=== PATIENT | female | born 1970 | race Caucasian/White ===

== ENCOUNTER 2018-10-26 17:02 | Inpatient (IN) ==
[2018-10-26] MEDS ORDERED: Isovue-370 500 ML BOTTLE IVP ONE (18:22)
[2018-10-26] MEDS ORDERED: *HR* FentaNYL (PF) 100 MCG/2 ML VIAL IVP ONE ×2 (18:29→19:53)
[2018-10-26] MEDS ORDERED: Ondansetron 4 MG/2 ML VIAL IVP ONE (18:31)
--- NOTE | 2018-10-26 18:40 | Emergency Department Note ---
Disposition Clinical Impression: Ischemic toe Disposition: Still a Patient Referrals: Margarita Carey CNP [Primary Care Provider] - Forms: ED Satisfaction Letter Time of Disposition: 21:46 General Adult HPI - General Chief complaint: ED Extremity Problem,Nontraumatic Stated complaint: Right foot pain/big toe black Time Seen by Provider: 10/26/18 17:13 Source: patient Limitations: no limitations Nursing Notes Reviewed: Yes Vital Signs Reviewed: Yes - History of Present Illness HPI Narrative: Patient is a 47-year-old female presenting to emergency Department for right great toe pain. Patient states that 2 weeks ago her right great toe became purple and painful. She is been seen multiple times for this including a vascular surgeon. Patient presents because despite pain medications provided home she is unable to control her pain. She has been taking oxycodone and Toradol. Patient states it is getting progressively worse, with pain in her ankle, swelling. Patient denies fever, chills, chest pain, shortness of breath, abdominal pain, nausea, vomiting Pain Scale: 10 - Related Data Home Medications Medication Instructions Recorded Confirmed Insulin ASPART [NovoLOG] 0 unit SQ Q6HR 10/13/18 10/13/18 Losartan [Cozaar] 25 mg PO DAILY 10/13/18 10/13/18 Non-Formulary Medication 1 unit SQ DAILY 10/13/18 10/13/18 Previous Rx's Medication Instructions Recorded Oxycodone HCl/Acetaminophen 1 each PO Q4H PRN 3 Days #12 tablet 10/19/18 [Percocet 5-325 mg Tablet] Allergies Allergy/AdvReac Type Severity Reaction Status Date / Time No Known Allergies Allergy Verified 10/13/18 17:53 All systems ED: reviewed and negative except as stated. Review of Systems: As Per HPI Constitutional: Denies: fever, chills Eyes: Denies: eye pain, eye discharge ENT ED: Denies: ear pain, throat pain Cardiovascular: Denies: chest pain, palpitations, dyspnea on exertion Respiratory: Denies: cough, dyspnea, wheezes Gastrointestinal: Denies: abdominal pain, nausea Genitourinary: Denies: urgency, dysuria Musculoskeletal: Denies: back pain, neck pain Integumentary: Denies: rash, abrasion Neurological: Denies: headache, weakness Psychiatric: Denies: anxiety, depression Endocrine: Denies: fatigue, heat or cold intolerance Hematological/Lymphatic: Denies: easy bleeding, easy bruising Allergic/Immunologic: Denies: facial swelling, urticaria Past Medical History - Past Medical History Attestation: Yes The following information was validated with the patient. 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 Absent: respiratory distress - Cardiovascular Cardiovascular exam: Present: regular rate, normal rhythm - Abdominal Exam Abdominal exam: Present: soft, Non-Tender. Absent: tenderness, distention - Expanded Lower Extremity Exam Foot/toe exam: Present: other (Right great toe is purple with crepitus, pain with active and passive movement.) Neurovascular/Tendon exam: Absent: normal capillary refill - Back Exam Back exam: Present: normal inspection - Neurological Exam Neurological exam: Present: alert, oriented X3 - Psychiatric Psychiatric exam: Present: normal affect, normal mood - Skin Skin exam: Present: warm, dry Course Vital Signs Temperature 98.5 F 10/26/18 17:27 Pulse Rate 121 10/26/18 17:27 Respiratory Rate 18 10/26/18 17:27 Blood Pressure 208/88 10/26/18 17:27 O2 Sat by Pulse Oximetry 95 10/26/18 17:27 Temperature 98.5 F 10/26/18 17:27 Pulse Rate 107 10/26/18 21:07 Respiratory Rate 18 10/26/18 21:07 Blood Pressure 163/96 10/26/18 21:07 O2 Sat by Pulse Oximetry 99 10/26/18 21:07 Oxygen Delivery Oxygen Delivery Room Air Medical Decision Making - [facility] [place] Narrative Medical decision making narrative: Patient presented emergency department with a painful right great toe. Patient's problem started 2 weeks ago concerning for vascular. Seen Dr. Zimmerman a vascular surgeon who had ordered ABIs. Patient was unable to get into the ABIs for some time. Patient states she is unable to control her pain at home. We will perform a CT scan here as well as at the ABIs and control her pain. Patient signed out to Dr. Ireland please refer to his note for further evaluation and treatment. - Medical Records Medical records reviewed: Yes I reviewed the patient's medical records. - Lab Data Lab results reviewed: Yes I reviewed the patient's lab results. Result diagrams: 10/26/18 17:50 10/26/18 17:50 Lab Results 10/26/18 10/26/18 10/26/18 Range/Units 17:50 17:50 17:50 WBC 9.4 (4.3-11.1) K/mcL RBC 4.25 (3.82-4.97) M/mcL Hgb 13.1 (11.5-15.4) g/dL Hct 40.7 (35.3-44.9) % MCV 95.8 (83.0-100.0) fL MCH 30.8 (28.0-33.3) pg MCHC 32.2 (31.6-35.5) g/dL RDW 14.2 (11.5-14.5) % Plt Count 308 (140-400) K/mcL MPV 10.0 (9.4-12.4) fL Immature Gran % 0.4 (0-4) % Seg Neutrophils % 63.9 % Lymphocytes % 27.3 % Monocytes % 6.5 % Eosinophils % 1.6 % Basophils % 0.3 % Neutrophils # 6.0 (1.6-8.9) K/mcL Lymphocytes # 2.6 (0.6-4.6) K/mcL Monocytes # 0.6 (0.0-1.3) K/mcL Eosinophils # 0.2 (0.0-0.6) K/mcL Basophils # 0.0 (0.0-0.2) K/mcL ESR (0-15) mm/hr PT 10.3 (9.4-12.1) Seconds INR 0.9 Sodium 137 (136-145) mEq/L Potassium 4.1 (3.5-5.1) mEq/L Chloride 104 (98-107) mEq/L Carbon Dioxide 24 (23-29) mEq/L BUN 32 H (6-20) mg/dL Creatinine 1.69 H (0.60-1.20) mg/dL Est GFR ( Amer) 39 L (> 60) Est GFR (Non-Af Amer) 32 L (> 60) BUN/Creatinine Ratio 19 (6-26) Glucose 195 H (70-105) mg/dL Calculated Osmolality 296 (280-300) Lactic Acid (0.5-2.2) mmol/L Calcium 9.1 (8.6-10.3) mg/dL C-Reactive Protein 25 H (Less than 10) mg/L 10/26/18 10/26/18 Range/Units 17:50 17:56 WBC (4.3-11.1) K/mcL RBC (3.82-4.97) M/mcL Hgb (11.5-15.4) g/dL Hct (35.3-44.9) % MCV (83.0-100.0) fL MCH (28.0-33.3) pg MCHC (31.6-35.5) g/dL RDW (11.5-14.5) % Plt Count (140-400) K/mcL MPV (9.4-12.4) fL Immature Gran % (0-4) % Seg Neutrophils % % Lymphocytes % % Monocytes % % Eosinophils % % Basophils % % Neutrophils # (1.6-8.9) K/mcL Lymphocytes # (0.6-4.6) K/mcL Monocytes # (0.0-1.3) K/mcL Eosinophils # (0.0-0.6) K/mcL Basophils # (0.0-0.2) K/mcL ESR 68 H (0-15) mm/hr PT (9.4-12.1) Seconds INR Sodium (136-145) mEq/L Potassium (3.5-5.1) mEq/L Chloride (98-107) mEq/L Carbon Dioxide (23-29) mEq/L BUN (6-20) mg/dL Creatinine (0.60-1.20) mg/dL Est GFR ( Amer) (> 60) Est GFR (Non-Af Amer) (> 60) BUN/Creatinine Ratio (6-26) Glucose (70-105) mg/dL Calculated Osmolality (280-300) Lactic Acid 0.7 (0.5-2.2) mmol/L Calcium (8.6-10.3) mg/dL C-Reactive Protein (Less than 10) mg/L - Radiology Data Radiology results reviewed: Yes I reviewed the patient's radiology results. Lower Extremity CT 10/26/18 18:22 IMPRESSION: 1. Evaluation of the toes is limited due to prominent motion artifact. No definite osteolysis or suspicious periosteal reaction identified within limits of the exam. 2. No acute osseous abnormality identified. 3. Mild diffuse subcutaneous edema of the imaged right lower extremity. No organized drainable fluid collection identified. No evidence for subcutaneous gas. D/ / Maxwell Ochoa MD / Maxwell Ochoa MD Interpreting Provider: Maxwell Ochoa MD S.B.AMalini - Latrice Transition of Care: Sign out Situation: Demographics, MOA Background: Presenting Complaint, Relevant PMH, Meds, & Allergies Assessment: Vital Signs, Course and respsone to treatment, Exam Concerns, Patient/Family Expectation, Pertinant Lab Results, Outstanding Labs Recommendation: Barrier(s) to disposition, Recommendation based on pending studies, treatments, or consults S.B.Miracle Report Given to: Dr. Shu Pollard Repor Time: 21:46 Attestation Statement - Attestation Attestation: Barbara, Sanjay Garcia, examined this patient and my medical decision-making was reviewed with the SCIENTIFIC PROGRAMMER ANALYST/PA/Advanced Practice Nurse/Resident Physician. I agree with the documented findings, disposition and treatment plan as described except to the extent set forth below. 47-year-old female presents emergency Department with concerns of pain to the right foot. Patient states symptoms have been present over the past 2 weeks. She was initially evaluated at [facility] for a "blue toe". The right great toe is cyanotic and significantly painful during the exam. Patient has decreased pulses in the bilateral lower extremity. Cap refill is present in the bilateral foot however she has significant tenderness to palpation of the right great toe. Patient denies recent trauma. She follow-up with Dr. Zimmerman outpatient who ordered ABIs. Patient presents today because her pain was unbearable at home. She was given multiple doses of pain medication emergency department with improvement of symptoms. CTA did not show evidence of subcutaneous gas. It was not done with IV contrast secondary to her renal function or chill received IV fluids at first. ABIs are still pending in the emergency department.
[2018-10-26 18:50] LABS: Basophils % 0.3 %; Eosinophils # 0.2 K/mcL (0.0-0.6); Eosinophils % 1.6 %; Hematocrit 40.7 % (35.3-44.9); Hemoglobin 13.1 g/dL (11.5-15.4); Immature Granulocytes % 0.4 % (0-4); Lymphocytes # 2.6 K/mcL (0.6-4.6); Lymphocytes % 27.3 %; Mean Corpuscular HGB Conc 32.2 g/dL (31.6-35.5); Mean Corpuscular Hemoglobin 30.8 pg (28.0-33.3); Mean Corpuscular Volume 95.8 fL (83.0-100.0); Monocytes # 0.6 K/mcL (0.0-1.3); Monocytes % 6.5 %; Platelet Count 308 K/mcL (140-400); Red Blood Count 4.25 M/mcL (3.82-4.97); Red Cell Distribution Width 14.2 % (11.5-14.5); Segmented Neutrophils % 63.9 %; White Blood Count 9.4 K/mcL (4.3-11.1)
[2018-10-26 18:55] LABS: Calcium 9.1 mg/dL (8.6-10.3); Potassium 4.1 mEq/L (3.5-5.1)
[2018-10-26 18:58] LABS: INR 0.9; Prothrombin Time 10.3 Seconds (9.4-12.1)
[2018-10-26] MEDS ORDERED: Morphine Sulfate 2 MG/ML SYRINGE IVP ONE (20:56)
--- NOTE | 2018-10-26 21:34 | Emergency Department Note ---
Disposition Clinical Impression: Ischemic toe, Arterial insufficiency of lower extremity Disposition: Admitted As Inpatient Condition: Fair Time of Disposition: 21:54 General Adult HPI - General Chief complaint: ED Extremity Problem,Nontraumatic Stated complaint: Right foot pain/big toe black Time Seen by Provider: 10/26/18 17:13 Source: patient Limitations: no limitations - History of Present Illness Pain Scale: 10 - Related Data Home Medications Medication Instructions Recorded Confirmed Insulin ASPART [NovoLOG] 0 unit SQ Q6HR 10/13/18 10/13/18 Losartan [Cozaar] 25 mg PO DAILY 10/13/18 10/13/18 Non-Formulary Medication 1 unit SQ DAILY 10/13/18 10/13/18 Previous Rx's Medication Instructions Recorded Oxycodone HCl/Acetaminophen 1 each PO Q4H PRN 3 Days #12 tablet 10/19/18 [Percocet 5-325 mg Tablet] Allergies Allergy/AdvReac Type Severity Reaction Status Date / Time No Known Allergies Allergy Verified 10/13/18 17:53 Constitutional: Denies: fever, chills Eyes: Denies: eye pain, eye discharge ENT ED: Denies: ear pain, throat pain Cardiovascular: Denies: chest pain, palpitations, dyspnea on exertion Respiratory: Denies: cough, dyspnea, wheezes Gastrointestinal: Denies: abdominal pain, nausea Genitourinary: Denies: urgency, dysuria Musculoskeletal: Denies: back pain, neck pain Integumentary: Denies: rash, abrasion Neurological: Denies: headache, weakness Psychiatric: Denies: anxiety, depression Endocrine: Denies: fatigue, heat or cold intolerance Hematological/Lymphatic: Denies: easy bleeding, easy bruising Allergic/Immunologic: Denies: facial swelling, urticaria Past Medical History - Past Medical History Medical history: Reports: diabetes, hyperlipidemia, hypertension, renal disease Surgical history: Reports: hysterectomy Psychiatric history: Reports: anxiety, depression 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 - Social History Smoking Status: Current every day smoker Smokeless Tobacco Status: No Alcohol use: Reports: none Drug use: Reports: none Physical Exam - General Limitations: no limitations General appearance: alert, in no apparent distress Course Vital Signs Temperature 98.5 F 10/26/18 17:27 Pulse Rate 121 10/26/18 17:27 Respiratory Rate 18 10/26/18 17:27 Blood Pressure 208/88 10/26/18 17:27 O2 Sat by Pulse Oximetry 95 10/26/18 17:27 Temperature 98.5 F 10/26/18 17:27 Pulse Rate 107 10/26/18 21:07 Respiratory Rate 18 10/26/18 21:07 Blood Pressure 163/96 10/26/18 21:07 O2 Sat by Pulse Oximetry 99 10/26/18 21:07 Oxygen Delivery Oxygen Delivery Room Air Medical Decision Making - Lab Data Result diagrams: 10/26/18 17:50 10/26/18 17:50 Lab Results 10/26/18 10/26/18 10/26/18 Range/Units 17:50 17:50 17:50 WBC 9.4 (4.3-11.1) K/mcL RBC 4.25 (3.82-4.97) M/mcL Hgb 13.1 (11.5-15.4) g/dL Hct 40.7 (35.3-44.9) % MCV 95.8 (83.0-100.0) fL MCH 30.8 (28.0-33.3) pg MCHC 32.2 (31.6-35.5) g/dL RDW 14.2 (11.5-14.5) % Plt Count 308 (140-400) K/mcL MPV 10.0 (9.4-12.4) fL Immature Gran % 0.4 (0-4) % Seg Neutrophils % 63.9 % Lymphocytes % 27.3 % Monocytes % 6.5 % Eosinophils % 1.6 % Basophils % 0.3 % Neutrophils # 6.0 (1.6-8.9) K/mcL Lymphocytes # 2.6 (0.6-4.6) K/mcL Monocytes # 0.6 (0.0-1.3) K/mcL Eosinophils # 0.2 (0.0-0.6) K/mcL Basophils # 0.0 (0.0-0.2) K/mcL ESR (0-15) mm/hr PT 10.3 (9.4-12.1) Seconds INR 0.9 Sodium 137 (136-145) mEq/L Potassium 4.1 (3.5-5.1) mEq/L Chloride 104 (98-107) mEq/L Carbon Dioxide 24 (23-29) mEq/L BUN 32 H (6-20) mg/dL Creatinine 1.69 H (0.60-1.20) mg/dL Est GFR ( Amer) 39 L (> 60) Est GFR (Non-Af Amer) 32 L (> 60) BUN/Creatinine Ratio 19 (6-26) Glucose 195 H (70-105) mg/dL POC Glucose (70-99) mg/dL Calculated Osmolality 296 (280-300) Lactic Acid (0.5-2.2) mmol/L Calcium 9.1 (8.6-10.3) mg/dL C-Reactive Protein 25 H (Less than 10) mg/L 10/26/18 10/26/18 10/26/18 Range/Units 17:50 17:56 21:47 WBC (4.3-11.1) K/mcL RBC (3.82-4.97) M/mcL Hgb (11.5-15.4) g/dL Hct (35.3-44.9) % MCV (83.0-100.0) fL MCH (28.0-33.3) pg MCHC (31.6-35.5) g/dL RDW (11.5-14.5) % Plt Count (140-400) K/mcL MPV (9.4-12.4) fL Immature Gran % (0-4) % Seg Neutrophils % % Lymphocytes % % Monocytes % % Eosinophils % % Basophils % % Neutrophils # (1.6-8.9) K/mcL Lymphocytes # (0.6-4.6) K/mcL Monocytes # (0.0-1.3) K/mcL Eosinophils # (0.0-0.6) K/mcL Basophils # (0.0-0.2) K/mcL ESR 68 H (0-15) mm/hr PT (9.4-12.1) Seconds INR Sodium (136-145) mEq/L Potassium (3.5-5.1) mEq/L Chloride (98-107) mEq/L Carbon Dioxide (23-29) mEq/L BUN (6-20) mg/dL Creatinine (0.60-1.20) mg/dL Est GFR ( Amer) (> 60) Est GFR (Non-Af Amer) (> 60) BUN/Creatinine Ratio (6-26) Glucose (70-105) mg/dL POC Glucose 184 H (70-99) mg/dL Calculated Osmolality (280-300) Lactic Acid 0.7 (0.5-2.2) mmol/L Calcium (8.6-10.3) mg/dL C-Reactive Protein (Less than 10) mg/L - EKG Data EKG #1 EKG attestation: Yes I reviewed and interpreted this EKG. EKG results narrative: Sinus tachycardia rate 106 left atrial enlargement right axis deviation. PA 159 QRS 81 QT/QTC 349/464. No acute ST segment elevation. Mild ST segment flattening in leads V4 and V5. Studies similar to previous dated 09/01/17 Critical Care Time Critical Care Time: Yes Total Critical Care Time: 30 Attestation: The high probability of a clinically significant, sudden or life threatening deterioration of the [] system(s) required my full and direct attention, intervention and personal management. The aggregate critical care time was [] minutes. This time is in addition to time spent performing reported procedures but includes the following: [] Data Review and interpretation [] Patient assessment and monitoring of vital signs [] Documentation [] Medication orders and management Attestation Statement - Attestation Attestation: Patient assumed from Dr. Garcia at 21:34 pending NORMA's. patient presented to ED with 2 weeks of LE discoloration - being managed by vascular surgery. 21:52: RLE NORMA .37/.45 without waveform. Call placed to vascular surgery on- call to discuss consultation. I will request admission to the medicine service
[2018-10-26] MEDS ORDERED: *HR* Heparin 5,000 UNIT/ML VIAL IVP PRN ×2 (22:13)
[2018-10-26] MEDS ORDERED: *HR* Heparin 5,000 UNIT/ML VIAL IVP ONE (22:13)
[2018-10-26] MEDS ORDERED: Heparin 25,000 UNIT/250 ML D5W 25,000 UNIT/250 ML IV.SOLN IVC SCH (22:15)
[2018-10-26 22:52] LABS: Hemoglobin 12.7 g/dL (11.5-15.4); Mean Corpuscular HGB Conc 32.6 g/dL (31.6-35.5); Mean Corpuscular Hemoglobin 30.3 pg (28.0-33.3); Mean Corpuscular Volume 93.1 fL (83.0-100.0); Mean Platelet Volume 9.6 fL (9.4-12.4); Platelet Count 285 K/mcL (140-400); Red Blood Count 4.19 M/mcL (3.82-4.97); Red Cell Distribution Width 14.3 % (11.5-14.5); White Blood Count 10.4 K/mcL (4.3-11.1)
[2018-10-26 23:04] LABS: Heparin anti-factor XA UFH 0.07 IU/mL (0.30-0.70); INR 0.9; Prothrombin Time 10.2 Seconds (9.4-12.1)
[2018-10-27] MEDS ORDERED: Naloxone 0.4 MG/ML INJ IVP PRN ×2 (00:25→15:17)
[2018-10-27] MEDS ORDERED: Ondansetron ODT 4 MG TAB.RAPDIS SL PRN ×2 (00:25→15:17)
[2018-10-27] MEDS: 0.9 % Sodium Chloride 1,000 ML IVC SCH ×2 (02:34→23:15)
[2018-10-27] MEDS: Morphine Sulfate 2 MG/ML SYRINGE IVP PRN ×4 (02:35→09:08)
--- NOTE | 2018-10-27 03:00 | Internal Med History&Physical ---
Date of Encounter: 10/27/18 Time of Encounter: 02:12 Internal Medicine - H&P: HPI Chief complaint: right toe pain Admitted From: Home History of present illness: Ms. Nascimento is a 47 year old pleasant functional female with past medical history controlled insulin-dependent type 2 diabetes, hyperlipidemia, peripheral artery disease, CKD stage 3 presented to the ED for right toe pain. [id number] encounter occurred to 2:00 a.m. Patient reported 3 weeks ago On Some of the Right Toe Pain sudden sharp progressive nonradiating, localized no alleviating factor, exacerbated with light touch and movement. Patient Then Went to the Urgent Care Where She Was Diagnosed with Gout and Was Given 10 Day Course of Steroids. Patient after One Week Continued to Have Worsening Toe Pain Does Not Urgent Care a Second Time and Was Given Another 10 Days of. Patient since Then Has Seen Vascular Surgeon, Podiatry with the Next Appointment Being November 09. Patient However Due To Severity of the sharp 9/10 Pain(is very pain tolerant at baseline) That Is Exacerbated with Minimal Pressure Limiting Her Ability to Walk and came to the ED prior to that appointment. Patient denied any recent surgeries, family history reviewed significant for breast cancer in her mother's side and cardiac disease in her father's side. Patient otherwise limits with her significant other and son and functions independently able to do all IADL and ADL.Patient denied etoh and any hx of prevoius hx of IV drug usage or endocarditis. Patient denied fever, chills, nausea, vomiting, chest pain, shortness of breath, abdominal pain, dysuria. CODE STATUS was discussed and the patient proceeded with a full code status. Personally contacted the family to obtain history and also full and with the plan. Past Med Surg Social Fam HX - Past Medical History Medical history: diabetes, hyperlipidemia, hypertension, renal disease Additional medical history: restless leg syndrome Psychiatric history: anxiety, depression - Past Surgical History Surgical History: hysterectomy - Social History Smoking Status: Current every day smoker Packs per day: 1.5 Smokeless Tobacco Status: No Alcohol use: none Drug use: none - Family History Mother Adopted: No Living Status: Still Living Hx Family Cardiac Disorders: Yes Hx Family Respiratory Disorders: Yes Hx Family Cancer: Yes Hx Family GI Disorders: No Hx Family Endocrine Disorder: No Hx Family Neuromuscular Disorders: No Hx Family Neurologic Disorders: No Hx Family HEENT Disorders: No Hx Family Autoimmune Disorders: No Father Adopted: No Living Status: Hx Family Cardiac Disorders: Yes Hx Family Respiratory Disorders: Yes Hx Family Cancer: Yes Hx Family GI Disorders: No Hx Family Endocrine Disorder: Yes Hx Family Neuromuscular Disorders: No Hx Family Neurologic Disorders: No Hx Family HEENT Disorders: No Hx Family Autoimmune Disorders: No Internal Medicine - H&P: Meds Insulin ASPART [NovoLOG] 8 unit SQ Q6HR 10/13/18 [History] Losartan [Cozaar] 25 mg PO DAILY 10/13/18 [History] Non-Formulary Medication 1 unit SQ DAILY 10/13/18 [History] Oxycodone HCl/Acetaminophen [Percocet 5-325 mg Tablet] 1 each PO Q4H PRN 3 Days #12 tablet 10/19/18 [Rx] Insulin Degludec [Tresiba] 30 unit SQ QPM 10/26/18 [History] Allergy/AdvReac Type Severity Reaction Status Date / Time No Known Allergies Allergy Verified 10/13/18 17:53 All Systems PM: A 10-system review of systems was performed and is negative for pertinent findings except as documented above in the HPI. Review of systems: General: No unintentional weightloss, No fever, No night sweats. Head: No headache, No injury. Ears: No discharge, No earache Eyes: No drainage, No eye pain Mouth and Throat: No new ulcers, No pain Nose and Sinus: No new congestion, No pain, Respiratory: No cough, No sputum production, No dyspnea Cardiovascular: No chest pain, No palpitations. Gastrointestinal: No nausea, No vomiting. No abdominal pain Genital Tract: No discharge, No pain. Urinary Tract: No dysuria, No discharge. MSK: No new/worsening joint pain. + right foot pain. Endocrine: No cold intolerance, No polyuria. Psychological: No suicidal, No homicidal ideation. - Constitutional Vitals: Temp Pulse Resp BP Pulse Ox 98.6 F 106 16 171/82 92 10/26/18 23:21 10/26/18 23:21 10/26/18 23:21 10/26/18 23:21 10/26/18 23:21 Exam: General Appearance: Appearing as age, well-nourished in no acute distress. Head: Atraumatic normocephalic Skin: Normal texture, normal turgor, warm, dry. Eyes: Conjunctivae not pale with no erythema, drainage, or ulcers. Anicteric. Neck: No Lymphadenopathy in the anterior/posterior cervical chain. No thyromegaly, masses or ulcers. Trachea midline. Heart: RRR, Grade 3 diastolic murmur with thrill. Capillary refill 3 seconds Lungs: No accessory muscle usage, lungs clear to auscultation bilaterally, no wheezes or crackles. Extremities: No pitting edema, clubbing, cyanosis, or ulcers.right toe cold, pale, tender. pulses delayed BL. Abdomen: Non-distended, normoactive bowel sounds. non-tender to palpation, no hepatomegally. No guarding. Neuro: AOx3 with no new sensory loss or focal deficits. MSK: Strength 5/5 Upper extremity equal bilaterally. Strength 5/5 Lower extremity equal bilaterally Internal Med - H&P Results - Labs CBC & Chem 7: 10/26/18 22:42 10/26/18 17:50 Labs: Short CBC 10/26/18 10/26/18 Range/Units 17:50 22:42 WBC 9.4 10.4 (4.3-11.1) K/mcL Hgb 13.1 12.7 (11.5-15.4) g/dL Hct 40.7 39.0 (35.3-44.9) % Plt Count 308 285 (140-400) K/mcL Neutrophils # 6.0 (1.6-8.9) K/mcL BMP 10/26/18 17:50 Sodium 137 Potassium 4.1 Chloride 104 Carbon Dioxide 24 BUN 32 H Creatinine 1.69 H Glucose 195 H Calcium 9.1 - Impressions ITS Impressions Lower Extremity CT 10/26/18 18:22 IMPRESSION: 1. Evaluation of the toes is limited due to prominent motion artifact. No definite osteolysis or suspicious periosteal reaction identified within limits of the exam. 2. No acute osseous abnormality identified. 3. Mild diffuse subcutaneous edema of the imaged right lower extremity. No organized drainable fluid collection identified. No evidence for subcutaneous gas. D/ / Maxwell Ochoa MD / Maxwell Ochoa MD Interpreting Provider: Maxwell Ochoa MD - Summary of Assessment and Plan Summary of Assessment and Plan: 1.Right Toe tenderness with cyanosis: Likely acute limbic ischemia secondary to smoking and medication non- compliance(not taking statin/ASA as recommended). 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 Vascular Surgery consultation. Heparin drip, statin ordered. 2.T2DM uncontrolled: A1c ordered. ISS and recheck. 3.Diastolic murmur: unclear if new. Echocardiogram orderred. Chronic medical conditions: CKD stage 3: Controlled. No change. Already established with nephrology outpatient. HTN: losartan HLP: lipid panel ordered. Started Atorvastatin. Cigarette smoking: nicotine patch ordered. Spent 10 minutes talking to patient on smoking cessation DVT prophylaxis: Heparin Dispo: likely inpatient will need 2 days of stay. - Time Spent With Patient Total time spent is greater than 38 minutes 50% in coordination of care (as documented) at patient's floor/unit and/or counseling patient: Greater than 35 minutes
[2018-10-27 04:19] LABS: Basophils # 0.1 K/mcL (0.0-0.2); Basophils % 0.5 %; Eosinophils # 0.2 K/mcL (0.0-0.6); Eosinophils % 1.8 %; Hematocrit 41.1 % (35.3-44.9); Hemoglobin 13.4 g/dL (11.5-15.4); Immature Granulocytes % 0.5 % (0-4); Lymphocytes # 3.5 K/mcL (0.6-4.6); Lymphocytes % 37.8 %; Mean Corpuscular HGB Conc 32.6 g/dL (31.6-35.5); Mean Corpuscular Hemoglobin 30.6 pg (28.0-33.3); Mean Corpuscular Volume 93.8 fL (83.0-100.0); Mean Platelet Volume 9.9 fL (9.4-12.4); Monocytes # 0.5 K/mcL (0.0-1.3); Monocytes % 5.8 %; Neutrophils # 4.9 K/mcL (1.6-8.9); Platelet Count 313 K/mcL (140-400); Red Blood Count 4.38 M/mcL (3.82-4.97); Segmented Neutrophils % 53.6 %; White Blood Count 9.1 K/mcL (4.3-11.1)
[2018-10-27] MEDS ORDERED: Dextrose Gel 15 GM/37.5 ML TUBE PO PRN ×4 (04:25→15:17)
[2018-10-27] MEDS ORDERED: D5% in Water 1,000 ML IVC PRN ×2 (04:25→15:17)
[2018-10-27] MEDS ORDERED: *HR* Dextrose 50 % in Water (Syg) 50 ML SYRINGE IVP PRN ×2 (04:25→15:17)
[2018-10-27 04:29] LABS: INR 0.9
[2018-10-27 04:37] LABS: Albumin 3.3 g/dL (3.5-5.7); Bilirubin,Total 0.3 mg/dL (0.3-1.0); Calcium 9.2 mg/dL (8.6-10.3); Chol/HDL Ratio 5.6 (0-4.9); Globulin 3.2 g/dL (2.4-3.5); Potassium 3.8 mEq/L (3.5-5.1); Total Protein 6.5 g/dL (6.4-8.9)
[2018-10-27] MEDS: Insulin LISPRO 300 UNITS/3 ML VIAL SQ SCH ×2 (05:33→12:59)
[2018-10-27 09:22] LABS: Estimated Average Glucose 427 mg/dl
[2018-10-27] MEDS ORDERED: *HR* Heparin 10,000 UNIT/10 ML VIAL ONE (10:22)
[2018-10-27] MEDS ORDERED: Isovue-250 100 ML INFUS..BTL ONE ×2 (10:22)
[2018-10-27] MEDS ORDERED: 0.9 % Sodium Chloride 1,000 ML ONE ×2 (10:22)
--- NOTE | 2018-10-27 10:47 | Vascular/Endovasc Consult Note ---
Date of Encounter: 10/27/18 Time of Encounter: 10:30 Assessment and Plan (1) Atherosclerosis of ey[place] artery of right leg with rest pain Status: Chronic The patient presented to the emergency room with progressive right great toe pain and cyanosis. She underwent vascular studies which reveals severe disease. He was administered intravenous heparin drip. She reports her symptoms have been present for several weeks and has been progressing. The patient is scheduled for angioplasty or intervention. The risks, benefits alternatives were discussed and all questions were answered. He was referred for symptoms, she was informed she may require open surgery. (2) Tobacco abuse Status: Chronic She was counseled regarding smoking cessation. (3) CKD (chronic kidney disease), stage III Status: Chronic The patient will be hydrated and given Mucomyst (4) Diabetes mellitus with peripheral angiopathy without gangrene Status: Chronic Qualifiers: Diabetes mellitus type: type 2 Diabetes mellitus remote computer terminal operator insulin use: with remote computer terminal operator use Qualified Code(s): E11.51 - Type 2 diabetes mellitus with diabetic peripheral angiopathy without gangrene; Z79.4 - manager intermediate (current) use of insulin (5) Essential hypertension Status: Acute The patient was counter atherosclerotic risk factor reduction. (6) Mixed hyperlipidemia Status: Chronic - History of Present Illness Consult date: 10/27/18 Requesting physician: Jagjit Ireland Consult reason: Peripheral vascular disease with rest pain Chief complaint: Right foot pain and cyanosis History of present illness: Ms. Nascimento is a 47 year old female with a history of hypertension, hyperlipidemia and tobacco abuse. The patient presented with complaints of progressive right great toe pain and tenderness. She is found have a diminished pulse exam emergency room. Vascular labs are ordered. Artery abnormal so vascular surgery was counseled. The patient reports disabling right lower extremity claudication. She also reports nocturnal rest pain greatest at the right great toe. She reports that the tenderness efficient to limit her mobility. She denies ulcerations or gangrene. She is been admitted and started on intravenous heparin drip. She denies any palpitations. She denies any fevers or chills. She denies any chest pain or shortness of breath. Past Med Surg Social Fam HX - Past Medical History Medical history: diabetes, hyperlipidemia, hypertension, renal disease Additional medical history: restless leg syndrome Psychiatric history: anxiety, depression - Past Surgical History Surgical History: hysterectomy - Social History Smoking Status: Current every day smoker Packs per day: 1.5 Smokeless Tobacco Status: No Alcohol use: none Drug use: none - Family History Mother Adopted: No Living Status: Still Living Hx Family Cardiac Disorders: Yes Hx Family Respiratory Disorders: Yes Hx Family Cancer: Yes Hx Family GI Disorders: No Hx Family Endocrine Disorder: No Hx Family Neuromuscular Disorders: No Hx Family Neurologic Disorders: No Hx Family HEENT Disorders: No Hx Family Autoimmune Disorders: No Father Adopted: No Living Status: Hx Family Cardiac Disorders: Yes Hx Family Respiratory Disorders: Yes Hx Family Cancer: Yes Hx Family GI Disorders: No Hx Family Endocrine Disorder: Yes Hx Family Neuromuscular Disorders: No Hx Family Neurologic Disorders: No Hx Family HEENT Disorders: No Hx Family Autoimmune Disorders: No Medications and Allergies Insulin ASPART [NovoLOG] 0 - 12 unit SQ TIDWM 10/13/18 [History] Losartan [Cozaar] 25 mg PO DAILY 10/13/18 [History] Cholecalciferol (Vitamin D3) [Vitamin D3] 2,000 units PO DAILY 10/27/18 [History] Cilostazol [Pletal] 100 mg PO BID 10/27/18 [History] Insulin Degludec [Tresiba Flextouch U-200] 30 units SQ HS 10/27/18 [History] lamoTRIgine [Lamotrigine] 200 mg PO BID 10/27/18 [History] Apixaban [Eliquis] 5 mg PO BID #60 tablet 10/28/18 [Rx] Atorvastatin [Lipitor] 40 mg PO HS #30 tablet 10/28/18 [Rx] Carvedilol [Coreg] 3.125 mg PO BIDWM #60 tablet 10/28/18 [Rx] HYDROcodone/Acet 5/325 mg [Solo 5-325 mg] 1 tab PO Q6HR PRN 7 Days #28 tablet 10/28/18 [Rx] Clopidogrel [Plavix] 75 mg PO DAILY #30 tablet 10/29/18 [Rx] Nicotine Patch [Nicoderm] 14 mg TD DAILY #30 patch.td24 10/29/18 [Rx] Oxycodone HCl/Acetaminophen [Percocet 5-325 mg Tablet] 1 each PO Q6H PRN 5 Days #15 tablet 10/29/18 [Rx] Allergy/AdvReac Type Severity Reaction Status Date / Time No Known Allergies Allergy Verified 10/27/18 20:22 All Systems Review: The remainder of the systems were reviewed and are negative Exam Vital Signs, Last 4 Hours Temp Pulse Resp BP Pulse Ox 10/27/18 07:29 98.5 F 100 20 165/86 92 General: Present: Conversant, No Apparent Distress HEENT: Present: Pupils equal Neck: Present: Left Carotid bruit. Absent: JVD, Lymphadenopathy Cardiac: Present: Reg Rate and Rhythm, Normal S1 and S2 Lungs: Present: Normal Breath Sounds, No Wheeze, Rales, Rhonchi Neuro: Present: Alert and responsive, Motor nerves grossly intact Abdomen: Present: Soft, Non-tender Vascular: Present: Normal capillary refill (Left), Capillary refill delayed (Right forefoot), Pulse, absent (Right popliteal, dorsalis pedis and posterior tibial), Pulse, normal (Lower extremity), Cyanosis (Right great toe). Absent: Edema Skin: Present: No rashes noted on visualized skin. Absent: Wound/ulcer(s) Consult Discharge Plan - Plan Instructions: Peripheral Vascular Disorders (DC) Referrals: Volodymyr Brar MD [Partnered Physician] - 12/15/18 9:30 am Manoj Zimmerman MD [Partnered Physician] - 11/22/18 4:00 pm Margarita Carey CNP [Primary Care Provider] - 11/01/18 10:00 am Maru Antonio CNP [Advanced Practice Nurse] - (Office stated they will call patient at home with date and time of appointment. Thank you) Prescriptions: Carvedilol [Coreg] 3.125 mg PO BIDWM #60 tablet Prescription Printed Apixaban [Eliquis] 5 mg PO BID #60 tablet Prescription Printed Atorvastatin [Lipitor] 40 mg PO HS #30 tablet Prescription Printed HYDROcodone/Acet 5/325 mg [Solo 5-325 mg] 1 tab PO Q6HR PRN 7 Days #28 tablet PRN Reason: Severe Pain Prescription Printed
[2018-10-27] MEDS ORDERED: *HR* Midazolam HCl 2 MG/2 ML VIAL ONE (10:56)
--- NOTE | 2018-10-27 10:56 | Pre-Sedation Evaluation ---
Pre-sedation evaluation - Pre-sedation checklist Date of procedure: 10/27/18 Procedure: Peripheral angiogram Recent Vitals: Last Vital Signs Temp 98.5 F 10/27/18 07:29 Pulse 100 10/27/18 07:29 Resp 20 10/27/18 07:29 BP 165/86 10/27/18 07:29 Pulse Ox 92 10/27/18 07:29 H&P (including ROS) documented in medical record: Yes Previous reaction to sedatives/anesthetics: No Dietary Status: NPO after Midnight Dentition: dentures removed ASA Classification *see protocol: CLASS III-Severe systemic disease Plan of Care: Pt appropriate candidate for procedure/moderate/conscious sedation, Risks/benefits of procedure/sedation discussed w/ patient/family
--- NOTE | 2018-10-27 11:20 | Electrocardiograph Report ---
[place] [address] Test Date: 2018-10-26 Pat Name: Selina Nascimento Department: EXAM9 Room: 3A23 Gender: Turner And Former Automatic: : 1970 Requested By: Jagjit Ireland Order Number: [id number] Reading MD: Chemo Olvera Measurements Intervals [place] Rate: 106 P: 78 MO: 159 QRS: 115 QRSD: 81 T: 69 QT: 349 QTc: 464 Interpretive Statements Sinus tachycardia Probable left atrial enlargement Right axis deviation Borderline T abnormalities, lateral leads Electronically Signed On 10-27-2018 11:19:27 EDT by Chemo Olvera
[2018-10-27] MEDS ORDERED: *HR* FentaNYL (PF) 100 MCG/2 ML VIAL ONE (11:38)
--- NOTE | 2018-10-27 12:26 | Invasive Diagnostic Lab Proc ---
Name: Selina Nascimento Date of Study: 10/27/2018 Date: 1970 Ht: 170.0 in Medical Record#: [id number] Age: 47 Wt: 78 lb Gender: Female BSA: 1.89 Order #: [id number] BMI: 26.99 Physicians Performing MD: Manoj Pagan MD Referring MD: Referring MD: Staff Name Position Time In Mee Tomas RT (R) Monitor Alirio Baumann RT (R) Scrub Aly Felton RN Train Control Electronic Technician Love Garcia RT (R) Monitor Shivani Burgess RN Monitor Indications Claudication Procedures Performed AORTOGRAPHY, ABDOMINAL S&I AORTOGRAPHY EXT Bilat S&I FEM/POPL REVASC W/STENT Pre-Procedure Checklist Informed consent is complete signed and on chart. H&P is on chart. ID band is on and ID verified with patient. Patient NPO for procedure The procedure was described for the patient and questions were answered. ECG is on chart. Plan of Care Patient will tolerate the procedure without complications. Adequate level of comfort will be maintained. Hemodynamics will remain stable Patient will recover from procedure without complications. Respiratory function will be maintained. Cardiac rhythm will remain stable. Patient temperature will be maintained. Patient and/or family have verbalized understanding of the procedure. Patient Education Chief Complaint/Reason for Test: Peripheral angiogram Developmental Category: Adult (18-64 years) Learning Barriers: None Education Needs: Procedure Education Method: Verbal Information Taught: Peripheral angiogram Educational Evaluation: Able to repeat information Intravenous Access Time IV Size Location DC'd Fluid/Drip Rate Units RN 20g 1 02/26" Patent On Arrival 0.9NaCl ml/hr Allergies No Known Allergies Vital Signs Time BP Systolic BP Diastolic HR O2 Sats ASA 10:49 AM 10:57 AM 10:57 AM 11:12 AM 11:27 AM 11:46 AM 11:23 AM 171 104 97 94 11:28 AM 175 102 104 94 11:33 AM 179 97 101 92 11:38 AM 177 107 107 88 11:43 AM 175 101 105 86 11:48 AM 177 102 108 83 11:53 AM 186 105 114 95 11:58 AM 190 109 116 90 12:03 PM 184 102 112 83 12:08 PM 172 99 110 82 10:48 AM 180 86 98 97 10:53 AM 175 99 98 98 10:58 AM 180 98 99 98 11:03 AM 168 96 100 97 11:08 AM 160 88 100 96 11:13 AM 168 91 99 98 11:18 AM 172 99 100 96 Procedure Medications Time Medication Dose Units Method Route 10:56 AM Versed 1 mg Intravenous 11:02 AM Versed 1 mg Intravenous 11:07 AM Lidocaine 2% 10 ml Subcutaneous 11:08 AM Lidocaine 2% 10 ml Subcutaneous 11:38 AM Fentanyl 50 mcg Intravenous 12:04 PM Lidocaine 2% 10 ml Subcutaneous 12:07 PM Plavix 300 mg Orally ASA Classification: CLASS III- Severe systemic disease (i.e. prior AMI, diabetes with vascular complications, morbid obesity) Debi Score Preprocedure Postprocedure Activity 2- Moves 4 extremities sustained head lift Activity 2- Moves 4 extremities sustained head lift Circulation 2- SBP +/= 20 points of pre-anesthetic level Circulation 2- SBP +/= 20 points of pre-anesthetic level Consciousness 2- Awake and alert oriented x 3 Consciousness 2- Awake and alert oriented x 3 O2 Saturation 2- Able to maintain O2 satruation of 92% on room air O2 Saturation 2- Able to maintain O2 satruation of 92% on room air Respiratory 2- Able to deep breathe and cough well Respiratory 2- Able to deep breathe and cough well Total Score 10 Total Score 10 Contrast: Isovue 300- 150ml Contrast Amount: 150 ml Fluoro Dose: 168 mGy Procedure Log Time Note Entered By 10:48 AM Pt arrived to lab director 1 at 10:48 [email or web address] 10:48 AM [email or web address] Mee Tomas RT (R) Position: Monitor Time in: 10:48 [email or web address] 10:48 AM Alirio Baumann RT (R) Position: Scrub Time in: 10:48 [email or web address] 10:48 AM Aly Felton RN Position: Train Control Electronic Technician Time in: 10:48 [email or web address] 10:48 AM Love Garcia RT (R) Position: Monitor Time in: 10:48 [email or web address] 10:49 AM Case delayed: No [email or web address] 10:49 AM Hair removed from procedure site in holding area using clippers. Bilateral groin prepped with Chloraprep by Love Garcia RT (R), then patient was draped. Skin intact. [email or web address] 10:49 AM Physician arrived 10:49 [email or web address] 10:49 AM Brian and melecio completed [email or web address] 10:49 AM Sign in performed according to hospital policy. [email or web address] 10:49 AM Procedure start 10:49 [email or web address] 10:49 AM Time: 10:49 Is patient comfortable and pain free?: Yes [email or web address] 10:49 AM Time: 10:49LOC: 5 = Fully awake and oriented or at pre-proc level [email or web address] 10:55 AM Shivani Burgess RN Position: Monitor Time in: 10:55 [email or web address] 10:56 AM ASA Class CLASS III- Severe systemic disease (i.e. prior AMI, diabetes with vascular complications, morbid obesity) kmavis 10:57 AM 10:56 Versed 1 mg Intravenous Given by Aly Felton RN kmavis 10:57 AM Time: 10:57 Is patient comfortable and pain free?: Yes kmavis 10:57 AM Time: 10:57LOC: 5 = Fully awake and oriented or at pre-proc level kmavis 11:00 AM Sanjana LEE from called and stated she did not give the beta nabila this morning due to not being verified by pharmacy. notified dr. pagan. no new orders received. kmavis 11:02 AM 11:02 Versed 1 mg Intravenous Given by Aly Felton RN avis 11:06 AM Time out perfomed kmavis 11:07 AM 11:07 10 ml Lidocaine 2% to left groin Subcutaneous Given By Manoj Pagan MD kmavis 11:08 AM Patient charges- Angio tray pack, Pulse Oximetry and ACIST tubing and transducer kmavis 11:08 AM Ultrasound, Sonosite, utilized to obtain vascular access kmavis 11:09 AM 11:08 10 ml Lidocaine 2% to left groin Subcutaneous Given By Manoj Pagan MD kmavis 11:09 AM Access obtained in the left femoral artery by percutaneous puncture. 4 Fr. 10 cm Terumo [place] sheath placed in left femoral artery kmavis 11:09 AM 0.035 180cm Bentson wire utilized to assist with catheter placement kmavis 11:09 AM 4Fr Omniflush catheter kmavis 11:13 AM Setting up for stepping kmavis 11:11 AM Abdominal angiogram with runoff completed: 20 ml/sec for a total of 10 mls kmavis 11:12 AM Time: 10:57 Is patient comfortable and pain free?: Yes kmavis 11:12 AM Time: 10:57LOC: 4 = Oriented but drowsy kmavis 11:16 AM Lower Extremity Bilateral angiography performed in AP contrast injected 8/40 mls. kmavis 11:18 AM Catheter removed kmavis 11:18 AM Wire removed kmavis 11:18 AM Intervention started at this time kmavis 11:19 AM Sheath exchanged for a 6 Fr 45 cm Terumo Destination sheath inserted into left femoral artery kmavis 11:21 AM 0.014 [place] 14, 30 gram 300cm guidewire advanced. kmavis 11:23 AM 5Fr 135cm Grant Blazer support catheter kmavis 11:24 AM Guide wire removed intact kmavis 11:25 AM 2ml of contrast hand injected kmavis 11:27 AM Time: 11:12LOC: 4 = Oriented but drowsy kmavis 11:28 AM Time: 11:12 Is patient comfortable and pain free?: Yes kmavis 11:28 AM Guide catheter removed intact kmavis 11:28 AM Inflation device kmavis 11:28 AM A Spiderfx was inserted distal to the lesion. kmavis 11:30 AM 4 mm x 100 mm [place] balloon catheter placed into right superficial femoral kmavis 11:36 AM 3 mls contrast injected into Rt Distal SFA. kmavis 11:38 AM 11:38 Fentanyl 50 mcg Intravenous Given by Aly Felton RN kmavis 11:39 AM Balloon inflated @ 12 ruthann for 60 seconds kmavis 11:40 AM Balloon pulled back. kmavis 11:40 AM 3 mls of contrast injected into RT distal SFA. kmavis 11:41 AM Balloon removed intact kmavis 11:46 AM Time: 11:28 Is patient comfortable and pain free?: Yes kmavis 11:46 AM Time: 11:27LOC: 4 = Oriented but drowsy kmavis 11:47 AM 5 mm x 40 mm InnovaVascular stent placed in right superficial femoral artery Lot # [id number] kmavis 11:48 AM 2 mls contrast injected into Rt distal SFA. kmavis 11:50 AM Stent delivery system removed intact kmavis 11:50 AM 3 mls contrast injectedn into Rt distal SFA. kmavis 11:52 AM [place] 4mm x100 mm balloon re-inserted. kmavis 11:55 AM Balloon inflated @ 10 ruthann for 60 seconds kmavis 11:55 AM Balloon removed intact kmavis 11:55 AM 4 mls of contrast injected into Rt distal SFA. kmavis 11:58 AM Turbo hawk catheter re-inserted. kmavis 11:58 AM Catheter and spider wire removed. kmavis 11:59 AM 3 mls contrast injected into Rt SFA. kmavis 12:00 PM 3 mls contrast injected into Rt lower leg. kmavis 12:01 PM Time: 11:46LOC: 4 = Oriented but drowsy kmavis 12:01 PM Time: 11:46 Is patient comfortable and pain free?: Yes kmavis 12:03 PM Procedure completed at 12:03 kmavis 12:03 PM Sign Out completed: Radiation Dose 168.18 mGy Fluoro Time: 9.6 minutes. Isovue 300- 150ml contrast ml given by Manoj Pagan MD. Complications: None. Confirmed administered medications:Yes Sedation minutes 60 kmavis 12:04 PM Isovue 300- 150ml,1 bottle(s) used. kmavis 12:06 PM Arterial sheath pulled. TapMe Starclose closure device used and was Successful S/N. kmavis 12:04 PM Estimated Blood Loss: minimal avis 12:05 PM 12:04 10 ml Lidocaine 2% to left groin Subcutaneous Given By Manoj Pagan MD avi 12:08 PM Time: 12:07 Plavix 300 mg Orally Given by Manoj Pagan MD avis 12:10 PM Site status No bleeding/hematoma - Lt Groin as reported by Alirio Baumann RT (R) at 12:10 kmavis 12:10 PM Opsite applied kmavis 12:10 PM Delay to floor: No kmavis 12:10 PM Complications: None kmavis 12:10 PM Family placed in consult room. kmavis 12:10 PM Fluoro Time: 9.6 minutes avis 12:11 PM Isovue 300- 150ml contrast 150 ml given by Manoj Pagan MD avis 12:11 PM Radiation Dose 168.18 mGy [facility] 10:58 AM HR=99 bpm, HFMW=014/98 mmhg, SpO2=98.0 %, Resp=17 B/min 11:03 AM DX=272 bpm, APYG=189/96 mmhg, SpO2=97.0 %, Resp=20 B/min 11:08 AM JS=383 bpm, JCFH=774/88 mmhg, SpO2=96.0 %, Resp=15 B/min 11:13 AM HR=99 bpm, BEDE=420/91 mmhg, SpO2=98.0 %, Resp=22 B/min 11:18 AM QO=526 bpm, TDNC=892/99 mmhg, SpO2=96.0 %, Resp=21 B/min 11:23 AM HR=97 bpm, DZQC=282/104 mmhg, SpO2=94.0 %, Resp=21 B/min 11:28 AM TP=491 bpm, WUVY=978/102 mmhg, SpO2=94.0 %, Resp=22 B/min 11:33 AM LI=063 bpm, XJLF=844/97 mmhg, SpO2=92.0 %, Resp=20 B/min 11:38 AM VF=083 bpm, SPXA=524/107 mmhg, SpO2=88.0 %, Resp=23 B/min 11:43 AM NG=062 bpm, HDEN=183/101 mmhg, SpO2=86.0 %, Resp=23 B/min 11:48 AM TU=776 bpm, QVYP=002/102 mmhg, SpO2=83.0 %, Resp=23 B/min 10:47 AM PVIStat 10:47 AM Vitals capture started with the following parameters, Patient=Adult, Interval=5 min, Initial Ydjypgwb=314 mmHg, Deflation Rate=5 mmHg, Cuff placed on Left Arm 10:48 AM Recorded ECG: UE=002 Condition=Condition 1 10:48 AM HR=98 bpm, MHQF=162/86 mmhg, SpO2=97.0 %, Resp=21 B/min 10:50 AM Recorded ECG: HR=90 Condition=Condition 1 10:53 AM HR=98 bpm, VCWU=607/99 mmhg, SpO2=98.0 %, Resp=22 B/min 10:57 AM Recorded ECG: ME=296 Condition=Condition 1 11:51 AM Recorded ECG: OI=730 Condition=Condition 1 11:53 AM QZ=709 bpm, SZKH=283/105 mmhg, SpO2=95.0 %, Resp=14 B/min 11:58 AM FJ=901 bpm, JPJP=846/109 mmhg, SpO2=90.0 %, Resp=33 B/min 12:03 PM IG=949 bpm, RSOG=798/102 mmhg, SpO2=83.0 %, Resp=27 B/min 12:08 PM BG=616 bpm, URAG=389/99 mmhg, SpO2=82.0 %, Resp=28 B/min 12:18 PM Report given to Sanjana LEE. Pt taken to , Room # 23 12:18 [email or web address] Post Procedure Information Post procedure instructions given Report Given To: Cass Site Checks Time Location Status Staff Sheath In? Note 12:10:00 PM Lt Groin No bleeding/hematoma Alirio Baumann RT (R) Pulses Time Site Pre Procedure Post Procedure Note Bilateral DP & PT 1+ 1+ Bilateral radial 2+ 2+ Updated by Shivani Burgess RN on 10/27/2018 12:18:34 PM electronically signed on 10/27/2018 12:19:11 PM with status of Final
--- NOTE | 2018-10-27 12:32 | Procedure Note ---
Date of procedure: 10/27/18 Pre-op diagnosis: Acute on chronic peripheral vascular disease with rest pain Post-op diagnosis: same Procedure: Abdominal aortogram, bilateral lower surgery angiogram, right lower extremity selective angiography, right superficial femoral artery antiplastic with 4 x 220 mm balloon, right superficial femoral artery 5 x 37 mm stent placement via left common femoral artery with 6-[place] sheath. Starclose deployed for hemostasis. Anesthesia: local, IV sedation (Moderate conscious sedation) Surgeon: Manoj Zimmerman Was there an manufacturing assistant present: No Estimated blood loss (cc): 1 Specimen: None Condition: stable Disposition: floor
[2018-10-27] MEDS ORDERED: Ipratropium/Albuterol Neb 3 ML ONE (12:46)
[2018-10-27] MEDS ORDERED: Ipratropium/Albuterol Neb 3 ML IH ONE (12:47)
--- NOTE | 2018-10-27 14:10 | Event Note ---
Date of Encounter: 10/27/18 Time of Encounter: 10:50 47-year-old female with history of heavy tobacco abuse, type II DM, CAD stage III, PAD who came into the hospital due to right lower extremity ischemia currently on heparin drip. Her symptoms were managed as follows: Right lower extremity ischemia: - On heparin drip, vascular surgery consulted, had angioplasty today. - Continue Lipitor, would add aspirin. Pain management with oxycodone 5 mg for mild/moderate pain and 10 mg for severe pain. Hypoxic respiratory failure: - Right after the procedure, patient was wheezing and required 15 L of O2. Her wheezing improved with breathing treatment and her oxygen requirement went down to 9. We will continue to monitor. T2DM: - A1c is 16.5, on insulin at home. Continue sliding scale, ADA diet and Accu- Chek.
[2018-10-27] MEDS ORDERED: *HR* HYDROcodone/Acet 5/325 mg TABLET PO PRN ×2 (15:17)
[2018-10-27] MEDS ORDERED: Acetaminophen 325 MG TABLET PO PRN ×2 (15:17)
[2018-10-27] MEDS ORDERED: Isovue-370 500 ML BOTTLE IVP ONE (15:17)
[2018-10-27] MEDS ORDERED: Heparin 25,000 UNIT/250 ML D5W 25,000 UNIT/250 ML IV.SOLN IVC SCH (15:17)
[2018-10-27] MEDS ORDERED: *HR* Heparin 5,000 UNIT/ML VIAL IVP PRN ×2 (15:17)
[2018-10-27] MEDS ORDERED: 0.9 % Sodium Chloride 1,000 ML IVC SCH (15:17)
[2018-10-27] MEDS ORDERED: *HR* OxyCODONE Immed Rel 5 MG TABLET PO PRN ×2 (15:17)
--- NOTE | 2018-10-27 16:48 | Event Note ---
Date of Encounter: 10/27/18 Time of Encounter: 16:30 The patient was seen and examined. She is no evidence of a hematoma. Her compartments are soft. She has polyphasic pedal signals in the right lower extremity. Her foot is warm and she reports that her right foot pain has resolved. He is recommended that the patient continue with a heparin drip tonight. She should be transitioned to an oral anticoagulant tomorrow. She will also need to continue with daily Plavix. An echocardiogram is recommended.
[2018-10-27] MEDS ORDERED: Insulin LISPRO 300 UNITS/3 ML VIAL SQ SCH ×2 (18:00→21:00)
[2018-10-27] MEDS ORDERED: Insulin DETEMIR 100 UNIT/ML X5UNITS SQ SCH ×2 (21:00)
[2018-10-27] MEDS: *HR* Acetylcysteine 20% 600 MG/3 ML ORAL SYRINGE PO SCH (22:27)
[2018-10-28] MEDS ORDERED: 0.9 % Sodium Chloride 1,000 ML IVC ONE (01:10)
[2018-10-28 05:15] LABS: Basophils % 0.4 %; Eosinophils # 0.1 K/mcL (0.0-0.6); Eosinophils % 1.4 %; Hematocrit 40.6 % (35.3-44.9); Immature Granulocytes % 0.5 % (0-4); Lymphocytes # 2.5 K/mcL (0.6-4.6); Lymphocytes % 30.3 %; Mean Corpuscular Hemoglobin 30.3 pg (28.0-33.3); Mean Corpuscular Volume 94.6 fL (83.0-100.0); Mean Platelet Volume 9.7 fL (9.4-12.4); Monocytes # 0.5 K/mcL (0.0-1.3); Monocytes % 6.4 %; Platelet Count 302 K/mcL (140-400); Red Blood Count 4.29 M/mcL (3.82-4.97); Red Cell Distribution Width 13.8 % (11.5-14.5); White Blood Count 8.1 K/mcL (4.3-11.1)
[2018-10-28 05:31] LABS: Calcium 8.8 mg/dL (8.6-10.3)
[2018-10-28] MEDS ORDERED: Aspirin 81 MG TAB.CHEW PO SCH ×2 (09:00)
[2018-10-28] MEDS ORDERED: *HR* Acetylcysteine 20% 600 MG/3 ML ORAL SYRINGE PO SCH (09:00)
[2018-10-28] MEDS ORDERED: Insulin LISPRO 300 UNITS/3 ML VIAL SQ SCH (09:00)
[2018-10-28] MEDS: *HR* Acetylcysteine 20% 600 MG/3 ML ORAL SYRINGE PO SCH (09:25)
--- NOTE | 2018-10-28 10:49 | Discharge Summary ---
- NOTES TO OUTPATIENT PROVIDER Notes to Outpatient Provider: Patient was admitted for right lower extremity ischemic limb managed by vascular surgery with angioplasty and stent placement. Vascular surgery recommended anticoagulation and she would be started on Eliquis. Her blood pressure was elevated and she will be started on Coreg to titrate up as outpatient. Her A1c was 16 and patient informed and she will follow-up with her borematic operator as outpatient meanwhile she will document her blood sugars at home for necessary adjustments. Her echo also revealed mild and patient was FU with her outpatient admission specialist. Date of Encounter: 10/28/18 Time of Encounter: 10:30 - Discharge Diagnosis (1) Ischemic toe Priority: Primary Status: Resolved (2) IDDM (insulin dependent diabetes mellitus) Priority: Secondary Status: Chronic (3) Aortic stenosis Priority: Secondary Status: Chronic Qualifiers: Cardiac valve disease etiology: nonrheumatic Qualified Code(s): I35.0 - Nonrheumatic aortic (valve) stenosis (4) CKD (chronic kidney disease), stage III Priority: Secondary Status: Chronic (5) Essential hypertension Priority: Secondary Status: Acute (6) Mixed hyperlipidemia Priority: Secondary Status: Chronic (7) Tobacco abuse Priority: Secondary Status: Chronic Hospital course: Ms. Nascimento is a 47 year old female with history of tobacco abuse, COPD who came into the hospital due to right big toe pain and discoloration. She was started on heparin drip for ischemic limb and viscous surgery was consulted. Patient had angiogram for the lower extremity with balloon angioplasty and stent placement in the right superficial femoral artery. Echocardiogram recommended by vascular surgery revealed EF of 60%, grade 2 diastolic dysfunction, mild , mild TR and mild pulmonary hypertension. Vascular surgery recommended anticoagulation of discharge along with Plavix. Eliquis has started along with plavix. Her A1c was noted to be 16 and patient has an appointment with her borematic operator next week. Today, patient feels symptomatically better and her sensation in her right big toe are back. She will be discharged home on follow-up with outpatient borematic operator, vascular surgery, admission specialist and PCP. Patient has consulted extensively to quit smoking. Discharge discussed with: patient Time spent discussing smoking cessation with patient: more than 10 minutes - Time Spent with Patient Total time spent providing and/or coordinating discharge services: 52 minutes - Discharge Medications Prescriptions: New Apixaban [Eliquis] 5 mg PO BID #60 tablet Carvedilol [Coreg] 3.125 mg PO BIDWM #60 tablet Atorvastatin [Lipitor] 40 mg PO HS #30 tablet HYDROcodone/Acet 5/325 mg [[place] 5-325 mg] 1 tab PO Q6HR PRN 7 Days #28 tablet PRN Reason: Severe Pain Patient Taking Own Medication 1 each PO HS each Continued Cholecalciferol (Vitamin D3) [Vitamin D3] 2,000 units PO DAILY Cilostazol [Pletal] 100 mg PO BID Insulin Degludec [Tresiba Flextouch U-200] 30 units SQ HS lamoTRIgine [Lamotrigine] 200 mg PO BID Losartan [Cozaar] 25 mg PO DAILY Insulin ASPART [NovoLOG] 0 - 12 unit SQ TIDWM Discontinued Aspirin [Lo-Dose Aspirin EC] 81 mg PO DAILY Oxycodone HCl/Acetaminophen [Percocet 5-325 mg Tablet] 1 each PO Q4H PRN 3 Days #12 tablet PRN Reason: Pain Home Medications: Insulin ASPART [NovoLOG] 0 - 12 unit SQ TIDWM 10/13/18 [History] Losartan [Cozaar] 25 mg PO DAILY 10/13/18 [History] Cholecalciferol (Vitamin D3) [Vitamin D3] 2,000 units PO DAILY 10/27/18 [History] Cilostazol [Pletal] 100 mg PO BID 10/27/18 [History] Insulin Degludec [Tresiba Flextouch U-200] 30 units SQ HS 10/27/18 [History] lamoTRIgine [Lamotrigine] 200 mg PO BID 10/27/18 [History] Apixaban [Eliquis] 5 mg PO BID #60 tablet 10/28/18 [Rx] Atorvastatin [Lipitor] 40 mg PO HS #30 tablet 10/28/18 [Rx] Carvedilol [Coreg] 3.125 mg PO BIDWM #60 tablet 10/28/18 [Rx] HYDROcodone/Acet 5/325 mg [[place] 5-325 mg] 1 tab PO Q6HR PRN 7 Days #28 tablet 10/28/18 [Rx] Patient Taking Own Medication 1 each PO HS each 10/28/18 [Rx] Allergies/Adverse Reactions: Allergy/AdvReac Type Severity Reaction Status Date / Time No Known Allergies Allergy Verified 10/27/18 20:22 Date of admission: 10/27/18 00:25 Primary care physician: Margarita Carey CNP Consults: 10/26/18 21:53 Consult to Vascular Surgery [CONS] Stat Consulting Provider: Vascular Surgery Janelle Reason for Consult: RLE arterial insufficiency Time Notified: 21:53 Call Completed: Yes 10/27/18 04:25 Consult to Diabetes Education [CONS] Stat Comment: Reason for Consult: uncontrolled T2DM. - Constitutional Vitals: Temp Pulse Resp BP Pulse Ox 98.6 F 87 14 152/82 94 10/28/18 07:39 10/28/18 07:39 10/28/18 07:39 10/28/18 07:39 10/28/18 07:39 Exam: General Appearance: Alert and oriented 3, no distress Head: Atraumatic normocephalic Skin: Normal texture, normal turgor, warm, dry. Eyes: Conjunctivae not pale with no erythema, drainage, or ulcers. Anicteric. Neck: No Lymphadenopathy in the anterior/posterior cervical chain. No thyromegaly, masses or ulcers. Trachea midline. Heart: RRR, right upper sternal systolic murmur Lungs: No accessory muscle usage, lungs clear to auscultation bilaterally, no wheezes or crackles. Extremities: Sensation are intact in the right lower extremity, pulses are detectable in the dorsalis pedis. Mild big toe discoloration improving. Abdomen: Non-distended, normoactive bowel sounds. non-tender to palpation, no hepatomegally. No guarding. Neuro: AOx3 with no new sensory loss or focal deficits. MSK: Strength 5/5 Upper extremity equal bilaterally. Strength 5/5 Lower extremity equal bilaterally - Patient Status Disposition: Home, Self-Care Condition: Good Functional capacity at discharge: independent ambulation Overall status at discharge: patient is back to baseline - Discharge Instructions Follow Up With: Margarita Carey CNP [Primary Care Provider] - Manoj Zimmerman MD [Partnered Physician] - - Diet and Activity Activity: increase activity as tolerated Diet: diabetic diet
[2018-10-28] MEDS ORDERED: Apixaban 5 MG TABLET PO SCH (11:00)
[2018-10-28 11:57] VITALS: BP 148/82
--- NOTE | 2018-10-29 06:42 | Vascular/Endovas Progress Note ---
Date of Encounter: 10/28/18 Time of Encounter: 11:30 - Assessment and plan (1) Atherosclerosis of [place] artery of right leg with rest pain Status: Chronic The patient was found have an occluded right superficial femoral artery as well as microembolic persist thrombotic events to the right forefoot. Resulted in right great toe ischemic rest pain with skin changes. Patient underwent a right superficial femoral artery angioplasty and stent placement. She is currently on heparin drip. Recommend the patient be discharged on oral anticoagulation as well as Plavix. She will also need inadequate pain relief. The vascular clinic infused for further evaluation. (2) Tobacco abuse Status: Chronic She was counseled again regarding smoking cessation. She is a former any future smoking could lead to limb loss. There is also former smoking likely worsened atherosclerosis associated complications including heart attack, stroke limb l oss or any further and/or . 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 (6) Mixed hyperlipidemia Status: Chronic - Subjective Interval history: The patient is postoperative day #1 after a right superficial femoral artery angioplasty and stent placement. She reports her leg is feeling much better. She continues to report pain in the right great toe has decreased. She denies chest pain or shortness breath. - Physical Examination General: Present: Conversant HEENT: Present: Pupils equal Cardiac: Present: Reg Rate and Rhythm, Normal S1 and S2 Lungs: Present: Normal Breath Sounds Neuro: Present: Alert and responsive, No focal deficits noted Vascular: Present: Normal capillary refill, Pulse, normal (Pedal signals polyphasic), Cyanosis (Right great toe cyanosis), Edema (Trace edema in the right forefoot likely due to reperfusion) Abdomen: Present: Soft Results 10/28/18 04:51 10/28/18 04:51 Consult Discharge Plan - Plan Instructions: Peripheral Vascular Disorders (DC) Referrals: Volodymyr Brar MD [Partnered Physician] - 12/15/18 9:30 am Manoj Zimmerman MD [Partnered Physician] - 11/22/18 4:00 pm Margarita Carey CNP [Primary Care Provider] - 11/01/18 10:00 am Maru Antonio CNP [Advanced Practice Nurse] - (Office stated they will call patient at home with date and time of appointment. Thank you) Prescriptions: Carvedilol [Coreg] 3.125 mg PO BIDWM #60 tablet Apixaban [Eliquis] 5 mg PO BID #60 tablet Atorvastatin [Lipitor] 40 mg PO HS #30 tablet HYDROcodone/Acet 5/325 mg [[place] 5-325 mg] 1 tab PO Q6HR PRN 7 Days #28 tablet PRN Reason: Severe Pain
== END 2018-10-28 13:12 | disposition home or self-care (01) | DRG 252 ==
LOC: 3ANU 17:02 → EMEROOARM 17:02 → 3ANU 23:12 → SUATTDRO 10-27 00:25
PROVIDERS: ADMIT Family Medicine; ATTEND Internal Medicine

== ENCOUNTER 2018-10-28 22:51 | Observation (INO) ==
[2018-10-28] MEDS ORDERED: Ondansetron 4 MG/2 ML VIAL IVP ONE (23:53)
[2018-10-28] MEDS ORDERED: Morphine Sulfate 2 MG/ML SYRINGE IVP ONE (23:53)
[2018-10-29 00:43] LABS: Basophils % 0.4 %; Eosinophils # 0.2 K/mcL (0.0-0.6); Eosinophils % 1.8 %; Hematocrit 37.3 % (35.3-44.9); Hemoglobin 12.2 g/dL (11.5-15.4); Immature Granulocytes % 0.5 % (0-4); Lymphocytes # 2.2 K/mcL (0.6-4.6); Lymphocytes % 24.2 %; Mean Corpuscular HGB Conc 32.7 g/dL (31.6-35.5); Mean Corpuscular Hemoglobin 30.2 pg (28.0-33.3); Mean Corpuscular Volume 92.3 fL (83.0-100.0); Mean Platelet Volume 9.7 fL (9.4-12.4); Monocytes # 0.6 K/mcL (0.0-1.3); Monocytes % 6.7 %; Platelet Count 329 K/mcL (140-400); Red Blood Count 4.04 M/mcL (3.82-4.97); Red Cell Distribution Width 13.7 % (11.5-14.5); Segmented Neutrophils % 66.4 %; White Blood Count 9.1 K/mcL (4.3-11.1)
[2018-10-29 00:49] LABS: Bilirubin,Urine Negative (Negative); Blood,Urine Negative (Negative); Clarity,Urine Clear (Clear); Color,Urine Yellow (Yellow); Glucose,Urine (UA) >=1000 mg/dL (Normal); Ketones,Urine Negative (Negative); Leukocyte Esterase,Urine Negative (Negative); Nitrite,Urine Negative (Negative); PH,Urine 6.5 pH Units (5.0-8.0); Protein,Urine 100 mg/dL (Neg-Trace); Specific Gravity,Urine 1.017 (1.010-1.025); Urobilinogen,Urine Normal (Normal)
[2018-10-29 00:51] LABS: Bacteria,Urine None Seen per hpf (None-Few); Hyaline Casts,Urine None Seen per lpf (None-Few); RBC,Urine 0-3 per hpf (0-3); Squamous Epithelial Cell,Urine Many per lpf (None-Few); WBC,Urine 0-3 per hpf (0-3)
[2018-10-29 00:52] LABS: Prothrombin Time 11.9 Seconds (9.4-12.1)
[2018-10-29 00:56] LABS: Albumin 3.1 g/dL (3.5-5.7); Bilirubin,Indirect 0.3 mg/dL (0.0-1.2); Bilirubin,Total 0.3 mg/dL (0.3-1.0); Calcium 8.7 mg/dL (8.6-10.3); Globulin 3.2 g/dL (2.4-3.5); Total Protein 6.3 g/dL (6.4-8.9)
--- NOTE | 2018-10-29 02:09 | Emergency Department Note ---
Disposition Clinical Impression: CKD (chronic kidney disease), stage III, LESLIE (acute kidney injury), Ischemia of toe, Atherosclerosis of [place] artery of right leg with rest pain, Arterial insufficiency of lower extremity Diabetes mellitus with peripheral angiopathy without gangrene Qualifiers: Diabetes mellitus type: type 2 Diabetes mellitus meter record clerk insulin use: with meter record clerk use Qualified Code(s): E11.51 - Type 2 diabetes mellitus with diabetic peripheral angiopathy without gangrene Disposition: Admitted As Inpatient Condition: Fair Time of Disposition: 02:35 Extremity Problem HPI - General Chief complaint: ED Extremity Problem,Nontraumatic Stated complaint: R Foot pain/swollen/red Time Seen by Provider: 10/28/18 23:44 Source: patient, family Mode of arrival: ambulatory Limitations: no limitations Nursing Notes Reviewed: Yes Vital Signs Reviewed: Yes - History of Present Illness HPI Narrative: 47-year-old female with a history of atherosclerotic disease, peripheral vascular disease, diabetes with a history of smoking presents in respiratory for evaluation of right great toe discoloration and pain. Patient had a stent placed in the right femoral artery yesterday and was discharged around noon today. They tell me that the toe was discolored for several weeks prior to having the surgery and they also tell me they were informed that the surgery would improve the circulation. She states she has not smoked since the procedure she does take Plavix and Eliquis She rates her pain 10 out of 10 Pt Subjective Complaint: extremity pain Consistency: constant, Worsening Injury Location: right, lower extremity, toe (great) Pain Scale: 10 - Related Data Home Medications Medication Instructions Recorded Confirmed Insulin ASPART [NovoLOG] 0 - 12 unit SQ TIDWM 10/13/18 10/29/18 Losartan [Cozaar] 25 mg PO DAILY 10/13/18 10/29/18 Cholecalciferol (Vitamin D3) 2,000 units PO DAILY 10/27/18 10/29/18 [Vitamin D3] Cilostazol [Pletal] 100 mg PO BID 10/27/18 10/29/18 Insulin Degludec [Tresiba 30 units SQ HS 10/27/18 10/29/18 Flextouch U-200] lamoTRIgine [Lamotrigine] 200 mg PO BID 10/27/18 10/29/18 Previous Rx's Medication Instructions Recorded Apixaban [Eliquis] 5 mg PO BID #60 tablet 10/28/18 Atorvastatin [Lipitor] 40 mg PO HS #30 tablet 10/28/18 Carvedilol [Coreg] 3.125 mg PO BIDWM #60 tablet 10/28/18 HYDROcodone/Acet 5/325 mg [[place] 1 tab PO Q6HR PRN 7 Days #28 tablet 10/28/18 5-325 mg] Patient Taking Own Medication 1 each PO HS each 10/28/18 Allergies Allergy/AdvReac Type Severity Reaction Status Date / Time No Known Allergies Allergy Verified 10/27/18 20:22 All systems ED: reviewed and negative except as stated. Constitutional: Denies: fever, chills, weakness, weight change Eyes: Denies: eye pain, eye discharge, vision change ENT ED: Denies: ear pain, throat pain, dental pain, hearing loss, epistaxis, congestion, dysphagia Cardiovascular: Denies: chest pain, palpitations, dyspnea on exertion, edema, syncope Respiratory: Denies: cough, dyspnea, wheezes, hemoptysis, stridor Gastrointestinal: Denies: abdominal pain, nausea, vomiting, diarrhea, constipation, hematemesis, melena, hematochezia Genitourinary: Denies: dysuria, frequency, hematuria, discharge Musculoskeletal: Reports: joint swelling (And pain). Denies: back pain, neck pain, arthralgia, myalgia Integumentary: Reports: other (Right great toe discolored). Denies: rash, abrasion, lesions Neurological: Denies: headache, weakness, numbness, paresthesias, confusion, abnormal gait, vertigo Psychiatric: Denies: anxiety, depression, suicidal thoughts, homicidal thoughts, auditory hallucinations, visual hallucinations Endocrine: Denies: fatigue, heat or cold intolerance Hematological/Lymphatic: Denies: easy bleeding, easy bruising, lymphadenopathy Past Medical History - Past Medical History Attestation: Yes The following information was validated with the patient. 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 Absent: tenderness - Chest Chest inspection: Present: normal inspection, symmetric chest wall rise. Absent: tenderness - Respiratory Respiratory exam: Present: normal lung sounds bilaterally. Absent: respiratory distress - Cardiovascular Cardiovascular exam: Present: regular rate, normal rhythm, normal heart sounds - Abdominal Exam Abdominal exam: Present: soft, Non-Tender, normal bowel sounds. Absent: tenderness, distention, guarding, rebound, rigidity - Extremities Exam Extremities exam: Present: normal inspection, full ROM, tenderness (Right great toe and foot). Absent: pedal edema - Expanded Lower Extremity Exam Neurovascular/Tendon exam: Present: normal capillary refill (Except right great toe as it is discolored and difficult to tell his a purplish red color). Absent: motor deficit, sensory deficit, tendon deficit - Back Exam Back exam: Present: normal inspection, full ROM. Absent: tenderness, CVA tenderness (R), CVA tenderness (L) - Neurological Exam Neurological exam: Present: alert, oriented X3, CN II-XII intact - Psychiatric Psychiatric exam: Present: normal affect, normal mood. Absent: depressed - Skin Skin exam: Present: warm, dry, intact, normal color, cyanosis (Right great toe), erythema Course Course Narrative: Patient was placed in examination room. H&P is obtained. Nurse's notes reviewed and agreed upon. Patient had dorsalis pedis and posterior tibialis pulses to palpation. However, they were decreased as compared to the left foot. The right great toe is discolored and purplish reddish tone however intermittently it does turn a whitish yellowish color. Since she recently had a stent and her toe was disc olored prior I feel that already being on anticoagulation with pulses being present she most likely could follow-up as an outpatient. However, her pain is a 10 out of 10. Morphine was given. This did help. A bedside Doppler was obtained to evaluate the pulses and they are present both dorsalis pedis and posterior tibialis however is on manual exam there also decreased compared to the left. Her kidney function has worsened. She does have CK-MB but now with an acute kidney injury. Her creatinine is 2.56 and this is worse compared to 1.3 prior to the surgery. I will change her to heparin. I did speak with the vascular surgeon. I initially attempted to get a hold of the surgeon that did the procedure but he was not shift production associate. I did speak to his covering partner. Dr Wright. He advised that the patient could follow up with the surgeon later today and call in the morning for an appointment. I asked if we did do a CT with runoff or a repeat duplex Doppler or NORMA's. I was informed this would not be necessary. She most likely is attempting to revascularize and she is oriented anticoagulation but there is also change relieves her toe. I expect the patient being smaller vessels and distal that unfortunately there is not much to do except wait. However, I felt her pain was significant. But secondary to the acute kidney injury and worsening azotemia I felt she should be observed. Normal saline bolus was given. I spoke to the and he stated that she was doing better while she was on the heparin drip. Patient will be admitted to the hospitalist Dr. Willingham and he will admit the patient. They will consult vascular surgery. I did advise that I did speak with Dr. Wright and the result of my discussion. I did advise that he informed me that from the [place] standpoint she could follow-up as an outpatient. Additionally, I did review her previous INR/PT/PTT and they were not therapeutic. Although, with Doris in the newer anticoagulants this is not always necessary. But, since she was going to be admitted back to the hospital heparin drip was started - Consultations Consultation #1: Dr. Gonzalez was contacted and please see previous part of note for details. Time: 00:35 Consultation #2: accepts patient and I did explain the results, physical exam, previous fashion or studies and the conversation with Dr. Wright. Time: 02:35 Vital Signs Temperature 98.0 F 10/28/18 22:59 Pulse Rate 98 10/28/18 22:59 Respiratory Rate 16 10/28/18 22:59 Blood Pressure 156/76 10/28/18 22:59 O2 Sat by Pulse Oximetry 95 10/28/18 22:59 Temperature 98.4 F 10/29/18 07:09 Pulse Rate 96 10/29/18 07:09 Respiratory Rate 16 10/29/18 07:09 Blood Pressure 113/65 10/29/18 07:09 O2 Sat by Pulse Oximetry 91 10/29/18 07:09 Oxygen Delivery Oxygen Delivery Room Air Extremity Problem, Nontraumati - Medical Records Medical records reviewed: Yes I reviewed the patient's medical records. - Lab Data Lab results reviewed: Yes I reviewed the patient's lab results. Result diagrams: 10/29/18 00:20 10/29/18 00:20 Lab Results 10/29/18 10/29/18 10/29/18 Range/Units 00:05 00:20 00:20 WBC (4.3-11.1) K/mcL RBC (3.82-4.97) M/mcL Hgb (11.5-15.4) g/dL Hct (35.3-44.9) % MCV (83.0-100.0) fL MCH (28.0-33.3) pg MCHC (31.6-35.5) g/dL RDW (11.5-14.5) % Plt Count (140-400) K/mcL MPV (9.4-12.4) fL Immature Gran % (0-4) % Seg Neutrophils % % Lymphocytes % % Monocytes % % Eosinophils % % Basophils % % Neutrophils # (1.6-8.9) K/mcL Lymphocytes # (0.6-4.6) K/mcL Monocytes # (0.0-1.3) K/mcL Eosinophils # (0.0-0.6) K/mcL Basophils # (0.0-0.2) K/mcL PT 11.9 (9.4-12.1) Seconds INR 1.0 APTT 40.0 H (26.0-36.0) Seconds Heparin Anti-Xa, Unfract (0.30-0.70) IU/mL Sodium (136-145) mEq/L Potassium (3.5-5.1) mEq/L Chloride (98-107) mEq/L Carbon Dioxide (23-29) mEq/L BUN (6-20) mg/dL Creatinine (0.60-1.20) mg/dL Est GFR ( Amer) (> 60) Est GFR (Non-Af Amer) (> 60) BUN/Creatinine Ratio (6-26) Glucose (70-105) mg/dL Calculated Osmolality (280-300) Lactic Acid 0.7 (0.5-2.2) mmol/L Calcium (8.6-10.3) mg/dL Total Bilirubin (0.3-1.0) mg/dL Direct Bilirubin (0.0-0.2) mg/dL Indirect Bilirubin (0.0-1.2) mg/dL AST (13-39) Units/L ALT (7-52) Units/L Alkaline Phosphatase (34-104) Units/L Serum Total Protein (6.4-8.9) g/dL Albumin (3.5-5.7) g/dL Globulin (2.4-3.5) g/dL Albumin/Globulin Ratio (1.1-2.2) Urine Color Yellow (Yellow) Urine Clarity Clear (Clear) Urine pH 6.5 (5.0-8.0) pH Units Ur Specific [place] 1.017 (1.010-1.025) Urine Protein 100 H (Neg-Trace) mg/dL Urine Glucose (UA) >=1000 H (Normal) mg/dL Urine Ketones Negative (Negative) mg/dL Urine Blood Negative (Negative) Urine Nitrite Negative (Negative) Urine Bilirubin Negative (Negative) Urine Urobilinogen Normal (Normal) mg/dL Ur Leukocyte Esterase Negative (Negative) Urine Microscopic RBC 0-3 (0-3) per hpf Urine Microscopic WBC 0-3 (0-3) per hpf Ur Squamous Epith Cells Many H (None-Few) per lpf Urine Bacteria None Seen (None-Few) per hpf Hyaline Casts None Seen (None-Few) per lpf Ur Culture Indicated? NO (NO) 10/29/18 10/29/18 10/29/18 Range/Units 00:20 00:20 04:21 WBC 9.1 (4.3-11.1) K/mcL RBC 4.04 (3.82-4.97) M/mcL Hgb 12.2 (11.5-15.4) g/dL Hct 37.3 (35.3-44.9) % MCV 92.3 (83.0-100.0) fL MCH 30.2 (28.0-33.3) pg MCHC 32.7 (31.6-35.5) g/dL RDW 13.7 (11.5-14.5) % Plt Count 329 (140-400) K/mcL MPV 9.7 (9.4-12.4) fL Immature Gran % 0.5 (0-4) % Seg Neutrophils % 66.4 % Lymphocytes % 24.2 % Monocytes % 6.7 % Eosinophils % 1.8 % Basophils % 0.4 % Neutrophils # 6.0 (1.6-8.9) K/mcL Lymphocytes # 2.2 (0.6-4.6) K/mcL Monocytes # 0.6 (0.0-1.3) K/mcL Eosinophils # 0.2 (0.0-0.6) K/mcL Basophils # 0.0 (0.0-0.2) K/mcL PT (9.4-12.1) Seconds INR APTT (26.0-36.0) Seconds Heparin Anti-Xa, Unfract 1.48 H* (0.30-0.70) IU/mL Sodium 136 (136-145) mEq/L Potassium 4.0 (3.5-5.1) mEq/L Chloride 100 (98-107) mEq/L Carbon Dioxide 25 (23-29) mEq/L BUN 35 H (6-20) mg/dL Creatinine 2.54 H (0.60-1.20) mg/dL Est GFR ( Amer) 25 L (> 60) Est GFR (Non-Af Amer) 20 L (> 60) BUN/Creatinine Ratio 14 (6-26) Glucose 336 H (70-105) mg/dL Calculated Osmolality 303 H (280-300) Lactic Acid (0.5-2.2) mmol/L Calcium 8.7 (8.6-10.3) mg/dL Total Bilirubin 0.3 (0.3-1.0) mg/dL Direct Bilirubin 0.0 (0.0-0.2) mg/dL Indirect Bilirubin 0.3 (0.0-1.2) mg/dL AST 15 (13-39) Units/L ALT 16 (7-52) Units/L Alkaline Phosphatase 138 H (34-104) Units/L Serum Total Protein 6.3 L (6.4-8.9) g/dL Albumin 3.1 L (3.5-5.7) g/dL Globulin 3.2 (2.4-3.5) g/dL Albumin/Globulin Ratio 1.0 L (1.1-2.2) Urine Color (Yellow) Urine Clarity (Clear) Urine pH (5.0-8.0) pH Units Ur Specific [place] (1.010-1.025) Urine Protein (Neg-Trace) mg/dL Urine Glucose (UA) (Normal) mg/dL Urine Ketones (Negative) mg/dL Urine Blood (Negative) Urine Nitrite (Negative) Urine Bilirubin (Negative) Urine Urobilinogen (Normal) mg/dL Ur Leukocyte Esterase (Negative) Urine Microscopic RBC (0-3) per hpf Urine Microscopic WBC (0-3) per hpf Ur Squamous Epith Cells (None-Few) per lpf Urine Bacteria (None-Few) per hpf Hyaline Casts (None-Few) per lpf Ur Culture Indicated? (NO) - Radiology Data Radiology results reviewed: Yes I reviewed the patient's radiology results. - EKG Data EKG attestation: Yes I reviewed and interpreted this EKG. EKG results narrative: EKG was obtained and reviewed and interpreted by me. Normal sinus rhythm 92 bpm, no ectopy or arrhythmia, normal axis and intervals no acute ST elevations. Critical Care Time Critical Care Time: Yes Total Critical Care Time: 30 Attestation: The high probability of a clinically significant, sudden or life threatening deterioration of the patient's condition required my full and direct attention, intervention and personal management.
[2018-10-29] MEDS ORDERED: *HR* Heparin 5,000 UNIT/ML VIAL IVP ONE (02:11)
[2018-10-29] MEDS ORDERED: *HR* Heparin 5,000 UNIT/ML VIAL IVP PRN ×2 (02:11)
[2018-10-29] MEDS ORDERED: 0.9 % Sodium Chloride 1,000 ML IVC ONE (02:12)
[2018-10-29] MEDS ORDERED: Heparin 25,000 UNIT/250 ML D5W 25,000 UNIT/250 ML IV.SOLN IVC SCH (02:15)
[2018-10-29] MEDS ORDERED: D5% in Water 1,000 ML IVC PRN (04:42)
[2018-10-29] MEDS ORDERED: *HR* Dextrose 50 % in Water (Syg) 50 ML SYRINGE IVP PRN (04:42)
[2018-10-29] MEDS ORDERED: Naloxone 0.4 MG/ML INJ IVP PRN (04:42)
[2018-10-29] MEDS ORDERED: Dextrose Gel 15 GM/37.5 ML TUBE PO PRN ×2 (04:42)
[2018-10-29] MEDS ORDERED: Ringers Solution, Lactated 1,000 ML IVC SCH (04:45)
[2018-10-29] MEDS ORDERED: Ondansetron ODT 4 MG TAB.RAPDIS SL PRN (04:50)
--- NOTE | 2018-10-29 05:09 | Internal Med History&Physical ---
Date of Encounter: 10/29/18 Time of Encounter: 04:55 Internal Medicine - H&P: HPI Chief complaint: toe pain History of present illness: Ms. Nascimento is a 47 year old pleasant functional female with past medical history controlled insulin-dependent type 2 diabetes, hyperlipidemia, peripheral artery disease, CKD stage 3 presented to the ED for right toe pain. [id number] en counter occurred to 3:39 a.m. Patient reported 3 weeks ago experianced Right Toe Pain sudden sharp progressive nonradiating, localized no alleviating factor, exacerbated with light touch and movement. Since then patient went to Urgent Care twice and was given 10 Day Course of Steroids for gout flare suspicion. Patient a Week later Continued to Have Worsening Toe Pain and scheduled to see Vascular Surgeon, Podiatry with the Next Appointment Being November 09. The patient was then subsequently admitted on 10/27/2018 for right lower tree acute limbic ischemia status post angioplasty of a vascular surgeon and stent placement. Patient was subsequently [facility]. Patient reported after going to the [facility] was feeling well no episodes of fever, chills, diaphoresis, shortness of breath, chest pain, dull pain, changes in bowel or rectal bleeding or dysuria. Patient stated his family noticed her toe to become more cyanotic and painful to palpation. Patient tried moving around to help with the flow alleviated the pain. However the pain continues to be sharp, intermittently worsened with a rate of 10/10 otherwise constant 3/10 localized alleviated slightly with movement exacerbated significantly with palpation. Patient's past medical, surgical, family, social history were personally reviewed . Patient denied any recent surgeries, family history reviewed significant for breast cancer in her mother's side. Patient otherwise limits with her significant other and son and functions independently able to do all IADL and ADL. Patient denied etoh and any hx of prevoius hx of IV drug usage. CODE STATUS was discussed and the patient proceeded with a full code status. Personally contacted the family to obtain history and also full and with the plan. Past Med Surg Social Fam HX - Past Medical History Medical history: diabetes, hyperlipidemia, hypertension, renal disease Additional medical history: restless leg syndrome. PVD Psychiatric history: anxiety, depression - Past Surgical History Surgical History: hysterectomy Additional surgical history: R femeral stent? - Social History Smoking Status: Current every day smoker Smokeless Tobacco Status: No Alcohol use: none Drug use: none - Family History Mother Adopted: No Living Status: Still Living Hx Family Cardiac Disorders: Yes Hx Family Respiratory Disorders: Yes Hx Family Cancer: Yes Hx Family GI Disorders: No Hx Family Endocrine Disorder: No Hx Family Neuromuscular Disorders: No Hx Family Neurologic Disorders: No Hx Family HEENT Disorders: No Hx Family Autoimmune Disorders: No Father Adopted: No Living Status: Hx Family Cardiac Disorders: Yes Hx Family Respiratory Disorders: Yes Hx Family Cancer: Yes Hx Family GI Disorders: No Hx Family Endocrine Disorder: Yes Hx Family Neuromuscular Disorders: No Hx Family Neurologic Disorders: No Hx Family HEENT Disorders: No Hx Family Autoimmune Disorders: No Internal Medicine - H&P: Meds Insulin ASPART [NovoLOG] 0 - 12 unit SQ TIDWM 10/13/18 [History] Losartan [Cozaar] 25 mg PO DAILY 10/13/18 [History] Cholecalciferol (Vitamin D3) [Vitamin D3] 2,000 units PO DAILY 10/27/18 [History] Cilostazol [Pletal] 100 mg PO BID 10/27/18 [History] Insulin Degludec [Tresiba Flextouch U-200] 30 units SQ HS 10/27/18 [History] lamoTRIgine [Lamotrigine] 200 mg PO BID 10/27/18 [History] Apixaban [Eliquis] 5 mg PO BID #60 tablet 10/28/18 [Rx] Atorvastatin [Lipitor] 40 mg PO HS #30 tablet 10/28/18 [Rx] Carvedilol [Coreg] 3.125 mg PO BIDWM #60 tablet 10/28/18 [Rx] HYDROcodone/Acet 5/325 mg [[place] 5-325 mg] 1 tab PO Q6HR PRN 7 Days #28 tablet 10/28/18 [Rx] Patient Taking Own Medication 1 each PO HS each 10/28/18 [Rx] Allergy/AdvReac Type Severity Reaction Status Date / Time No Known Allergies Allergy Verified 10/27/18 20:22 All Systems PM: A 10-system review of systems was performed and is negative for pertinent findings except as documented above in the HPI. Review of systems: General: No unintentional weightloss, No fever, No night sweats. Head: No headache, No injury. Ears: No discharge, No earache Eyes: No drainage, No eye pain Mouth and Throat: No new ulcers, No pain Nose and Sinus: No new congestion, No pain, Respiratory: No cough, No sputum production, No dyspnea Cardiovascular: No chest pain, No palpitations. Gastrointestinal: No nausea, No vomiting. No abdominal pain Genital Tract: No discharge, No pain. Urinary Tract: No dysuria, No discharge. MSK: No new/worsening joint pain. + right foot pain. Endocrine: No cold intolerance, No polyuria. Psychological: No suicidal, No homicidal ideation. - Constitutional Vitals: Temp Pulse Resp BP Pulse Ox 98.3 F 94 16 154/80 96 10/29/18 03:56 10/29/18 03:56 10/29/18 03:56 10/29/18 03:56 10/29/18 03:56 Exam: General Appearance: Appearing as age, well-nourished in no acute distress. Head: Atraumatic normocephalic Skin: Normal texture, normal turgor, warm, dry. erythema noted along the lateral aspect of the toe. Eyes: Conjunctivae not pale with no erythema, drainage, or ulcers. Anicteric. Neck: No Lymphadenopathy in the anterior/posterior cervical chain. No thyromegaly, masses or ulcers. Trachea midline. Heart: RRR, Grade 3 diastolic murmur with thrill. Capillary refill 3 seconds Lungs: No accessory muscle usage, lungs clear to auscultation bilaterally, no wheezes or crackles. Extremities: No pitting edema, clubbing, cyanosis, or ulcers. right toe cold, pale, tender. pulses delayed BL. Abdomen: Non-distended, normoactive bowel sounds. non-tender to palpation, no hepatomegally. No guarding. Neuro: AOx3 with no new sensory loss or focal deficits. MSK: Strength 5/5 Upper extremity equal bilaterally. Strength 5/5 Lower extremity equal bilaterally Internal Med - H&P Results - Labs CBC & Chem 7: 10/29/18 00:20 10/29/18 00:20 Labs: Short CBC 10/29/18 Range/Units 00:20 WBC 9.1 (4.3-11.1) K/mcL Hgb 12.2 (11.5-15.4) g/dL Hct 37.3 (35.3-44.9) % Plt Count 329 (140-400) K/mcL Neutrophils # 6.0 (1.6-8.9) K/mcL BMP 10/29/18 00:20 Sodium 136 Potassium 4.0 Chloride 100 Carbon Dioxide 25 BUN 35 H Creatinine 2.54 H Glucose 336 H Calcium 8.7 Liver Function 10/29/18 Range/Units 00:20 Total Bilirubin 0.3 (0.3-1.0) mg/dL Direct Bilirubin 0.0 (0.0-0.2) mg/dL AST 15 (13-39) Units/L ALT 16 (7-52) Units/L Alkaline Phosphatase 138 H (34-104) Units/L Albumin 3.1 L (3.5-5.7) g/dL Urine 10/29/18 Range/Units 00:05 Urine Color Yellow (Yellow) Urine Clarity Clear (Clear) Urine pH 6.5 (5.0-8.0) pH Units Ur Specific [place] 1.017 (1.010-1.025) Urine Protein 100 H (Neg-Trace) mg/dL Urine Glucose (UA) >=1000 H (Normal) mg/dL - Summary of Assessment and Plan Summary of Assessment and Plan: 1.Right Toe acute limbic ischemia s/p angioplasty on eliquis: Suspected thrombophlebitis. Held eliquis. Heparin drip, statin ordered. Vascular Surgery consultation. 2.Acute on chronic Renal failure stage 3: IVF and recheck. 3.T2DM uncontrolled: ISS and recheck. 4.Elevated ALP: GGT. Chronic medical conditions: HTN: losartan HLP: lipid panel ordered. Atorvastatin. DVT prophylaxis: Heparin Dispo: likely inpatient will need 2 days of stay. - Time Spent With Patient Total time spent is greater than 37 minutes 50% in coordination of care (as documented) at patient's floor/unit and/or counseling patient: Greater than 35 minutes - VTE Reasons for not Prescribing Prophylaxis: Not indicated-Anticoagulated or INR therapeutic
[2018-10-29] MEDS ORDERED: *HR* HYDROcodone/Acet 5/325 mg TABLET PO PRN ×2 (05:16→11:40)
[2018-10-29] MEDS: Insulin LISPRO 300 UNITS/3 ML VIAL SQ SCH ×2 (08:13→11:35)
[2018-10-29] MEDS ORDERED: 0.9 % Sodium Chloride 1,000 ML IVC SCH (09:00)
[2018-10-29] MEDS ORDERED: lamoTRIgine 100 MG TABLET PO SCH (09:00)
[2018-10-29 11:05] VITALS: BP 126/72
[2018-10-29] MEDS ORDERED: *HR* OxyCODONE/APAP 10/325 TABLET PO PRN (11:34)
[2018-10-29] MEDS ORDERED: Apixaban 5 MG TABLET PO SCH (12:31)
--- NOTE | 2018-10-29 12:43 | Discharge Summary ---
- NOTES TO OUTPATIENT PROVIDER Notes to Outpatient Provider: f/u with PCP in one week. f/u with Vascular surgery as scheduled. Please quit smoking. Please continue taking Eliquis 5mg PO BID and Plavix 75mg PO Daily Orders not resulted at time of discharge: Pending orders 10/30/18 04:00 Urinalysis reflex Microscopic [URIN] AM 0400 Date of Encounter: 10/29/18 Time of Encounter: 12:35 - Discharge Diagnosis (1) Ischemia of toe Priority: Primary Status: Acute (2) LESLIE (acute kidney injury) Priority: Primary Status: Acute (3) Arterial insufficiency of lower extremity Priority: Secondary Status: Acute (4) Atherosclerosis of [place] artery of right leg with rest pain Priority: Secondary Status: Chronic (5) CKD (chronic kidney disease), stage III Priority: Secondary Status: Chronic (6) Diabetes mellitus with peripheral angiopathy without gangrene Priority: Secondary Status: Chronic Qualifiers: Diabetes mellitus type: type 2 Diabetes mellitus senior care insulin use: with senior care use Qualified Code(s): E11.51 - Type 2 diabetes mellitus with diabetic peripheral angiopathy without gangrene; Z79.4 - custodial (current) use of insulin (7) Essential hypertension Priority: Secondary Status: Acute (8) Tobacco abuse Priority: Secondary Status: Chronic Hospital course: Ms. Nascimento is a 47 year old pleasant functional female with past medical history controlled insulin-dependent type 2 diabetes, hyperlipidemia, peripheral artery disease, CKD stage 3 presented to the ED for right toe pain. She was recently admitted with Rt ischemic great toe found have an occluded right superficial femoral artery as well as microembolic persist thrombotic events to the right forefoot. Resulted in right great toe ischemic rest pain with skin changes. Patient underwent a right superficial femoral artery angioplasty and stent placement. She was set home y/d with Eliquis and Pletal. Now she came back last night with worsening pain, swelling and more discoloration of great toe. She was started on heparin gtt. Pt was evaluated by vascular surgery, who did not recommend any interventions now. Vascular surgery counseled the pt about quitting smoking and continue taking Eliquis + Anti platelet med Plavix. So gave her rx for Plavix and Rx for pain medication. Her toe does not look infected. So will d/c her home in stable condition today. - Time Spent with Patient Total time spent providing and/or coordinating discharge services: Time spent: D/C greater than 8 hours after Admission (I provided [id number]-le-[id number] service to this patient more than 8 hrs apart since pt got admitted in the hospital by my colleague.) - Discharge Medications Prescriptions: No Action Cholecalciferol (Vitamin D3) [Vitamin D3] 2,000 units PO DAILY Cilostazol [Pletal] 100 mg PO BID Insulin Degludec [Tresiba Flextouch U-200] 30 units SQ HS lamoTRIgine [Lamotrigine] 200 mg PO BID Apixaban [Eliquis] 5 mg PO BID #60 tablet Carvedilol [Coreg] 3.125 mg PO BIDWM #60 tablet Atorvastatin [Lipitor] 40 mg PO HS #30 tablet HYDROcodone/Acet 5/325 mg [[place] 5-325 mg] 1 tab PO Q6HR PRN 7 Days #28 tablet PRN Reason: Severe Pain Losartan [Cozaar] 25 mg PO DAILY Insulin ASPART [NovoLOG] 0 - 12 unit SQ TIDWM Home Medications: Insulin ASPART [NovoLOG] 0 - 12 unit SQ TIDWM 10/13/18 [History] Losartan [Cozaar] 25 mg PO DAILY 10/13/18 [History] Cholecalciferol (Vitamin D3) [Vitamin D3] 2,000 units PO DAILY 10/27/18 [History] Cilostazol [Pletal] 100 mg PO BID 10/27/18 [History] Insulin Degludec [Tresiba Flextouch U-200] 30 units SQ HS 10/27/18 [History] lamoTRIgine [Lamotrigine] 200 mg PO BID 10/27/18 [History] Apixaban [Eliquis] 5 mg PO BID #60 tablet 10/28/18 [Rx] Atorvastatin [Lipitor] 40 mg PO HS #30 tablet 10/28/18 [Rx] Carvedilol [Coreg] 3.125 mg PO BIDWM #60 tablet 10/28/18 [Rx] HYDROcodone/Acet 5/325 mg [[place] 5-325 mg] 1 tab PO Q6HR PRN 7 Days #28 tablet 10/28/18 [Rx] Allergies/Adverse Reactions: Allergy/AdvReac Type Severity Reaction Status Date / Time No Known Allergies Allergy Verified 10/27/18 20:22 Date of admission: 10/29/18 05:27 Primary care physician: PCP NONE Consults: 10/29/18 06:00 Consult to Physician [CONS] Routine Consulting Provider: Manoj Zimmerman Reason for Consult: right toe pain worsening post procedure. Call Completed: No - Constitutional Vitals: Temp Pulse Resp BP Pulse Ox 98.2 F 84 16 126/72 94 10/29/18 11:03 10/29/18 11:03 10/29/18 11:03 10/29/18 11:03 10/29/18 11:03 General appearance: Present: cooperative, A&O X 3, no acute distress, answers questions appropriately Exam: a - Head Head exam: Present: atraumatic, normal inspection - Neck Neck exam general surgery: Present: supple - Respiratory Respiratory exam: Present: decreased breath sounds. Absent: rales, respiratory distress, rhonchi, wheezes - Cardiovascular Cardiovascular exam: Present: RRR, +S1, +S2. Absent: tachycardia - GI/Abdominal GI/Abdominal exam: Present: normal bowel sounds, soft. Absent: rebound, rigid, tenderness - Extremities Exam Extremities exam: Present: cyanotic (mild cyanosis / skin changes noticed ), tenderness (mild to moderate tenderness in Rt great toe) - Back Exam Back exam: Absent: CVA tenderness (L), CVA tenderness (R) - Neurological Exam Neurological exam: Present: alert, oriented X3 - Psychiatric Psychiatric exam: Present: normal affect, normal mood - Skin Skin exam: Present: cyanosis, rash - Patient Status Disposition: Home, Self-Care Condition: Good Overall status at discharge: patient is back to baseline - Discharge Instructions Follow Up With: Margarita Carey CNP [Advanced Practice Nurse] - 11/03/18 10:30 am Manoj Zimmerman MD [Partnered Physician] - - Diet and Activity Activity: increase activity as tolerated Diet: low salt diet - VTE Reasons for not Prescribing Prophylaxis: Not indicated-Anticoagulated or INR therapeutic
--- NOTE | 2018-10-29 13:14 | Vascular/Endovasc Consult Note ---
Date of Encounter: 10/29/18 Time of Encounter: 13:00 Assessment and Plan (1) Ischemic toe Status: Chronic The patient was seen and examined. She is a chronically ischemic right great toe due to microemboli into the forefoot. She has polyphasic pedal signals. Her foot is warm and his compartments are soft. She is no evidence of tissue breakdown at this time. Her symptoms are likely rated her forefoot microemboli. She has cyanosis of the right forefoot at the left great toe. She has no evidence of infection at this time. She may be discharged to home. She should resume her Eliquis. She should continue with her Plavix. She will follow up in vascular clinic. She is also scheduled to see podiatry. 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 (5) Tobacco abuse Status: Chronic The patient was counseled again regarding smoking cessation. (6) CKD (chronic kidney disease), stage III Status: Chronic - History of Present Illness Consult date: 10/29/18 Requesting physician: Bud Carson Consult reason: Right toe pain Chief complaint: Right total pain and cyanosis History of present illness: Ms. Nascimento is a 47 year old female with history of hypertension, hyperlipidemia, tobacco abuse and peripheral vascular disease. Patient had acute on chronic limb ischemia recently underwent a right superficial femoral artery angioplasty and stent placement. The patient was also found have microembolic disease to the right forefoot. She was sent home with anticoagulation. She will return to the emergency room with persistent right great toe pain. She denies any claudic ation, rest pain or ulceration. She also denies gangrene. She reports her symptoms have subsided since arrival in the emergency room. She is currently on a heparin drip. She denies any palpitations. She denies any chest pain or shortness of breath. Past Med Surg Social Fam HX - Past Medical History Medical history: diabetes, hyperlipidemia, hypertension, renal disease Additional medical history: restless leg syndrome. PVD Psychiatric history: anxiety, depression - Past Surgical History Surgical History: hysterectomy Additional surgical history: R femeral stent? - Social History Smoking Status: Current every day smoker Smokeless Tobacco Status: No Alcohol use: none Drug use: none - Family History Mother Adopted: No Living Status: Still Living Hx Family Cardiac Disorders: Yes Hx Family Respiratory Disorders: Yes Hx Family Cancer: Yes Hx Family GI Disorders: No Hx Family Endocrine Disorder: No Hx Family Neuromuscular Disorders: No Hx Family Neurologic Disorders: No Hx Family HEENT Disorders: No Hx Family Autoimmune Disorders: No Father Adopted: No Living Status: Hx Family Cardiac Disorders: Yes Hx Family Respiratory Disorders: Yes Hx Family Cancer: Yes Hx Family GI Disorders: No Hx Family Endocrine Disorder: Yes Hx Family Neuromuscular Disorders: No Hx Family Neurologic Disorders: No Hx Family HEENT Disorders: No Hx Family Autoimmune Disorders: No Medications and Allergies Insulin ASPART [NovoLOG] 0 - 12 unit SQ TIDWM 10/13/18 [History] Losartan [Cozaar] 25 mg PO DAILY 10/13/18 [History] Cholecalciferol (Vitamin D3) [Vitamin D3] 2,000 units PO DAILY 10/27/18 [History] Cilostazol [Pletal] 100 mg PO BID 10/27/18 [History] Insulin Degludec [Tresiba Flextouch U-200] 30 units SQ HS 10/27/18 [History] lamoTRIgine [Lamotrigine] 200 mg PO BID 10/27/18 [History] Apixaban [Eliquis] 5 mg PO BID #60 tablet 10/28/18 [Rx] Atorvastatin [Lipitor] 40 mg PO HS #30 tablet 10/28/18 [Rx] Carvedilol [Coreg] 3.125 mg PO BIDWM #60 tablet 10/28/18 [Rx] HYDROcodone/Acet 5/325 mg [[place] 5-325 mg] 1 tab PO Q6HR PRN 7 Days #28 tablet 10/28/18 [Rx] Clopidogrel [Plavix] 75 mg PO DAILY #30 tablet 10/29/18 [Rx] Nicotine Patch [Nicoderm] 14 mg TD DAILY #30 patch.td24 10/29/18 [Rx] Oxycodone HCl/Acetaminophen [Percocet 5-325 mg Tablet] 1 each PO Q6H PRN 5 Days #15 tablet 10/29/18 [Rx] Allergy/AdvReac Type Severity Reaction Status Date / Time No Known Allergies Allergy Verified 10/27/18 20:22 All Systems Review: The remainder of the systems were reviewed and are negative - Constitutional Constitutional: no chills, no fever(s) - Cardiovascular Cardiovascular: no chest pain at rest, no dyspnea at rest, no palpitations Exam Vital Signs, Last 4 Hours Temp Pulse Resp BP Pulse Ox 10/29/18 11:03 98.2 F 84 16 126/72 94 General: Present: Conversant, No Apparent Distress HEENT: Present: Pupils equal Neck: Absent: JVD, Lymphadenopathy Cardiac: Present: Reg Rate and Rhythm, Normal S1 and S2 Lungs: Present: Normal Breath Sounds Neuro: Present: Alert and responsive, No focal deficits noted, Motor nerves grossly intact, Sensory nerves grossly intact Vascular: Present: Normal capillary refill, Capillary refill delayed (Right great toe), Pulse, normal, Cyanosis (Right great toe), Surgical incisions (Left groin access site without hematoma or drainage). Absent: Edema Consult Discharge Plan - Plan Referrals: Manoj Zimmerman MD [Partnered Physician] - Margarita Carey CNP [Advanced Practice Nurse] - 11/03/18 10:30 am Prescriptions: Nicotine Patch [Nicoderm] 14 mg TD DAILY #30 patch.td24 Prescription Printed Oxycodone HCl/Acetaminophen [Percocet 5-325 mg Tablet] 1 each PO Q6H PRN 5 Days #15 tablet PRN Reason: Pain Prescription Printed Clopidogrel [Plavix] 75 mg PO DAILY #30 tablet Prescription Printed
--- NOTE | 2018-10-29 17:41 | Electrocardiograph Report ---
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
== END 2018-10-29 13:30 | disposition home or self-care (01) ==
LOC: 3BNU 22:51 → EMEROOARM 22:51 → 3BNU 10-29 03:45 → SUATTDRO 10-29 05:27
PROVIDERS: ADMIT Family Medicine; ATTEND Family Medicine

== ENCOUNTER 2021-05-10 21:41 | Observation (INO) ==
[2021-05-11] MEDS ORDERED: Melatonin 3 MG TABLET PO PRN (01:28)
[2021-05-11] MEDS ORDERED: Ondansetron 4 MG/2 ML VIAL IVP PRN (01:28)
[2021-05-11] MEDS ORDERED: Naloxone 0.4 MG/ML INJ IVP PRN (01:28)
[2021-05-11] MEDS ORDERED: *HR* HYDROcodone/Acet 5/325 mg TABLET PO PRN (01:28)
[2021-05-11] MEDS ORDERED: *HR* Promethazine 25 MG/ML VIAL IM PRN (01:28)
[2021-05-11] MEDS ORDERED: D5% in Water 1,000 ML IVC PRN (01:32)
[2021-05-11] MEDS ORDERED: *HR* Dextrose 50 % in Water (Syg) 50 ML SYRINGE IVP PRN (01:32)
[2021-05-11] MEDS ORDERED: Dextrose 4 GM Chewable Tablets PO PRN ×2 (01:32)
[2021-05-11] MEDS ORDERED: *HR* Heparin 5,000 UNIT/ML VIAL IVP PRN (02:02)
[2021-05-11] MEDS ORDERED: Perflutren Lipid Microsphere 1.3 ML in 0.9 % Sodium Chloride 8.7 ML IVP PRN (02:02)
[2021-05-11] MEDS: Acetaminophen 325 MG TABLET PO PRN ×2 (02:04→21:32)
[2021-05-11] MEDS: Heparin 25,000UNIT/250ML 1/2NS 25,000 UNIT/250 ML IV.SOLN IVC SCH (02:53)
[2021-05-11 03:10] LABS: Basophils % 0.5 %; Eosinophils % 0.3 %; Hematocrit 36.1 % (35.3-44.9); Hemoglobin 11.8 g/dL (11.5-15.4); Immature Granulocytes % 0.4 % (0-4); Lymphocytes # 1.7 K/mcL (0.6-4.6); Lymphocytes % 21.5 %; Mean Corpuscular HGB Conc 32.7 g/dL (31.6-35.5); Mean Corpuscular Hemoglobin 28.7 pg (28.0-33.3); Mean Corpuscular Volume 87.8 fL (83.0-100.0); Mean Platelet Volume 11.6 fL (9.4-12.4); Monocytes # 0.5 K/mcL (0.0-1.3); Monocytes % 6.7 %; Neutrophils # 5.5 K/mcL (1.6-8.9); Platelet Count 204 K/mcL (140-400); Red Blood Count 4.11 M/mcL (3.82-4.97); Red Cell Distribution Width 15.9 % (11.5-14.5); Segmented Neutrophils % 70.6 %; White Blood Count 7.7 K/mcL (4.3-11.1)
[2021-05-11 03:10] LABS: Adenovirus Not Detected (Not Detect); Bordetella Pertussis Not Detected (Not Detect); Chlamydophila pneumoniae Not Detected (Not Detect); Coronavirus 229E Not Detected (Not Detect); Coronavirus HKU1 Not Detected (Not Detect); Coronavirus NL63 Not Detected (Not Detect); Coronavirus OC43 Not Detected (Not Detect); Human Metapneumovirus Not Detected (Not Detect); Human Rhinovirus/Enterovirus Not Detected (Not Detect); Influenza A Subtype 2009 H1 Not Detected (Not Detect); Influenza B Not Detected (Not Detect); Mycoplasma pneumoniae Not Detected (Not Detect); Parainfluenza Virus 1 Not Detected (Not Detect); Parainfluenza Virus 2 Not Detected (Not Detect); Parainfluenza Virus 3 Not Detected (Not Detect); Parainfluenza Virus 4 Not Detected (Not Detect); Respiratory Syncytial Virus Not Detected (Not Detect); SARS-CoV-2 Not Detected (Not Detect)
[2021-05-11 03:21] LABS: Heparin anti-factor XA UFH 0.26 IU/mL (0.30-0.70); Prothrombin Time 11.4 Seconds (9.4-12.1)
[2021-05-11] MEDS: *HR* Heparin 5,000 UNIT/ML VIAL IVP PRN ×3 (03:28→18:15)
[2021-05-11] MEDS: Azithromycin 500 MG in 0.9 % Sodium Chloride 250 ML IVPB SCH (03:29)
[2021-05-11 03:39] LABS: Calcium 8.3 mg/dL (8.6-10.3); Magnesium 2.1 mg/dL (1.6-2.6); Potassium 3.8 mEq/L (3.5-5.1); Troponin I 0.11 ng/mL (< 0.04)
[2021-05-11] MEDS ORDERED: Insulin LISPRO 300 UNITS/3 ML VIAL SUBQ SCH ×3 (07:30→21:00)
[2021-05-11] MEDS: Aspirin Enteric Coated 81 MG Tablet PO SCH (07:49)
[2021-05-11] MEDS: Furosemide 40 MG/4 ML VIAL IVP SCH ×2 (07:49→16:24)
[2021-05-11] MEDS: cefTRIAXone 1,000 MG in Water for inj. (sterile) 10 ML IVP SCH (07:49)
[2021-05-11] MEDS: Insulin DETEMIR 100 UNIT/ML X5UNITS SUBQ SCH ×2 (10:23→21:36)
[2021-05-11] MEDS: Insulin LISPRO 300 UNITS/3 ML VIAL SUBQ SCH ×2 (11:55→16:24)
[2021-05-11] MEDS: Metoprolol XL (24 HR) Succ 25 MG TAB.ER.24H PO SCH (13:04)
[2021-05-11] MEDS ORDERED: Insulin DETEMIR 100 UNIT/ML X5UNITS SUBQ SCH (21:00)
[2021-05-12 01:22] LABS: Basophils % 0.7 %; Eosinophils # 0.2 K/mcL (0.0-0.6); Eosinophils % 4.1 %; Hematocrit 37.1 % (35.3-44.9); Immature Granulocytes % 0.2 % (0-4); Lymphocytes # 2.5 K/mcL (0.6-4.6); Lymphocytes % 41.5 %; Mean Corpuscular HGB Conc 32.3 g/dL (31.6-35.5); Mean Corpuscular Volume 86.7 fL (83.0-100.0); Mean Platelet Volume 11.4 fL (9.4-12.4); Monocytes # 0.4 K/mcL (0.0-1.3); Monocytes % 5.9 %; Neutrophils # 2.8 K/mcL (1.6-8.9); Platelet Count 240 K/mcL (140-400); Red Blood Count 4.28 M/mcL (3.82-4.97); Red Cell Distribution Width 15.8 % (11.5-14.5); Segmented Neutrophils % 47.6 %; White Blood Count 5.9 K/mcL (4.3-11.1)
[2021-05-12 01:42] LABS: Calcium 8.7 mg/dL (8.6-10.3); Magnesium 2.1 mg/dL (1.6-2.6)
[2021-05-12] MEDS: Heparin 25,000UNIT/250ML 1/2NS 25,000 UNIT/250 ML IV.SOLN IVC SCH (01:50)
[2021-05-12] MEDS: *HR* Heparin 5,000 UNIT/ML VIAL IVP PRN (02:32)
[2021-05-12] MEDS: Azithromycin 500 MG in 0.9 % Sodium Chloride 250 ML IVPB SCH (02:33)
[2021-05-12 04:29] LABS: Estimated Average Glucose 470 mg/dl
[2021-05-12] MEDS: Insulin LISPRO 300 UNITS/3 ML VIAL SUBQ SCH ×3 (06:58→16:11)
[2021-05-12] MEDS: Furosemide 40 MG/4 ML VIAL IVP SCH (08:41)
[2021-05-12] MEDS: Aspirin Enteric Coated 81 MG Tablet PO SCH (08:42)
[2021-05-12] MEDS: cefTRIAXone 1,000 MG in Water for inj. (sterile) 10 ML IVP SCH (08:42)
[2021-05-12] MEDS: Metoprolol XL (24 HR) Succ 25 MG TAB.ER.24H PO SCH (08:42)
[2021-05-12] MEDS ORDERED: FLUoxetine 20 MG CAPSULE PO SCH (09:00)
[2021-05-12] MEDS: Insulin DETEMIR 100 UNIT/ML X5UNITS SUBQ SCH (09:05)
[2021-05-12 10:52] VITALS: BP 164/81; PULSE 88; TEMP 98.5; O2SAT 96
[2021-05-12] MEDS ORDERED: *HR* Heparin 5,000 UNIT/ML VIAL SQ SCH (18:00)
[2021-05-13] MEDS ORDERED: Furosemide 40 MG TABLET PO SCH (09:00)
== END 2021-05-12 18:08 | disposition home or self-care (01) ==
LOC: 2NENU → SUATTDRO 05-11 01:03
PROVIDERS: ADMIT Internal Medicine; ATTEND Hospitalist

== ENCOUNTER 2021-08-10 01:02 | Inpatient (IN) ==
[2021-08-10] MEDS ORDERED: D5% in Water 1,000 ML IVC PRN (13:09)
[2021-08-10] MEDS ORDERED: *HR* Dextrose 50 % in Water (Syg) 50 ML SYRINGE IVP PRN (13:09)
[2021-08-10] MEDS ORDERED: Dextrose Gel 15 GM/37.5 ML TUBE PO PRN ×2 (13:09)
[2021-08-10] MEDS ORDERED: Naloxone 0.4 MG/ML INJ IVP PRN (13:13)
[2021-08-10] MEDS ORDERED: Ondansetron 4 MG/2 ML VIAL IVP PRN (13:13)
[2021-08-10] MEDS ORDERED: Insulin DETEMIR 100 UNIT/ML X5UNITS SUBQ SCH (13:15)
[2021-08-10 15:00] LABS: Calcium 8.8 mg/dL (8.6-10.3); Potassium 3.8 mEq/L (3.5-5.1)
[2021-08-10 15:16] LABS: Thyroid Stimulating Hormone 2.943 mcIU/mL (0.340-5.600)
[2021-08-10 15:26] LABS: Folate 17.7 ng/mL (3.0-16.0)
[2021-08-10] MEDS ORDERED: Insulin LISPRO 300 UNITS/3 ML VIAL SUBQ SCH (16:30)
[2021-08-10] MEDS ORDERED: Bumetanide 1 MG/4 ML VIAL IVP SCH (17:00)
[2021-08-10] MEDS ORDERED: traZODone 50 MG TABLET PO ONE (20:49)
[2021-08-10] MEDS: Insulin LISPRO 300 UNITS/3 ML VIAL SUBQ SCH (21:02)
[2021-08-10] MEDS: carvediloL 6.25 MG TABLET PO SCH (21:03)
[2021-08-10] MEDS: Insulin DETEMIR 100 UNIT/ML X5UNITS SUBQ SCH (21:05)
[2021-08-11 01:37] LABS: Basophils % 0.7 %; Eosinophils # 0.2 K/mcL (0.0-0.6); Eosinophils % 3.2 %; Hematocrit 30.2 % (35.3-44.9); Hemoglobin 9.2 g/dL (11.5-15.4); Immature Granulocytes % 0.4 % (0-4); Lymphocytes # 1.6 K/mcL (0.6-4.6); Lymphocytes % 28.7 %; Mean Corpuscular HGB Conc 30.5 g/dL (31.6-35.5); Mean Corpuscular Hemoglobin 25.3 pg (28.0-33.3); Mean Corpuscular Volume 83.2 fL (83.0-100.0); Mean Platelet Volume 10.4 fL (9.4-12.4); Monocytes # 0.4 K/mcL (0.0-1.3); Monocytes % 7.5 %; Neutrophils # 3.3 K/mcL (1.6-8.9); Platelet Count 325 K/mcL (140-400); Red Blood Count 3.63 M/mcL (3.82-4.97); Red Cell Distribution Width 15.7 % (11.5-14.5); Segmented Neutrophils % 59.5 %; White Blood Count 5.6 K/mcL (4.3-11.1)
[2021-08-11 02:04] LABS: Calcium 8.5 mg/dL (8.6-10.3); Magnesium 2.2 mg/dL (1.6-2.6); Potassium 3.7 mEq/L (3.5-5.1)
[2021-08-11] MEDS: Insulin LISPRO 300 UNITS/3 ML VIAL SUBQ SCH ×4 (07:34→19:53)
[2021-08-11] MEDS: Isosorbide MONOnitrate (24 HR) 30 MG TAB.ER.24H PO SCH (07:59)
[2021-08-11] MEDS: carvediloL 6.25 MG TABLET PO SCH ×2 (07:59→19:53)
[2021-08-11] MEDS: FLUoxetine 20 MG CAPSULE PO SCH (07:59)
[2021-08-11] MEDS: Aspirin Enteric Coated 81 MG Tablet PO SCH (07:59)
[2021-08-11] MEDS: Insulin DETEMIR 100 UNIT/ML X5UNITS SUBQ SCH ×2 (08:00→19:53)
[2021-08-11] MEDS: Bumetanide 1 MG/4 ML VIAL IVP SCH ×2 (08:00→08:12)
[2021-08-11] MEDS ORDERED: traZODone 50 MG TABLET PO ONE (20:10)
[2021-08-12 03:44] LABS: Albumin 2.7 g/dL (3.5-5.7); Albumin/Globulin Ratio 0.9 (1.1-2.2); Bilirubin,Total 0.2 mg/dL (0.3-1.0); Calcium 8.5 mg/dL (8.6-10.3); Globulin 3.1 g/dL (2.4-3.5); Potassium 3.8 mEq/L (3.5-5.1); Total Protein 5.8 g/dL (6.4-8.9)
[2021-08-12] MEDS: Bumetanide 1 MG/4 ML VIAL IVP SCH (08:03)
[2021-08-12] MEDS: Isosorbide MONOnitrate (24 HR) 30 MG TAB.ER.24H PO SCH (08:03)
[2021-08-12] MEDS: Aspirin Enteric Coated 81 MG Tablet PO SCH (08:03)
[2021-08-12] MEDS: Insulin DETEMIR 100 UNIT/ML X5UNITS SUBQ SCH ×2 (08:03→21:14)
[2021-08-12] MEDS: carvediloL 6.25 MG TABLET PO SCH (08:03)
[2021-08-12] MEDS: FLUoxetine 20 MG CAPSULE PO SCH (08:03)
[2021-08-12] MEDS: Insulin LISPRO 300 UNITS/3 ML VIAL SUBQ SCH ×4 (08:03→19:19)
[2021-08-12] MEDS ORDERED: 0.9 % Sodium Chloride 1,000 ML IVC SCH (08:15)
[2021-08-12] MEDS: Albumin 25% 25gram/100mL 25 GM/100 ML IV.SOLN IVPB SCH ×2 (13:44→21:16)
[2021-08-12] MEDS ORDERED: carvediloL 25 MG TABLET PO SCH (21:00)
[2021-08-12] MEDS: Gabapentin 300 MG CAPSULE PO SCH (21:14)
[2021-08-12] MEDS: traZODone 50 MG TABLET PO PRN (21:14)
[2021-08-13 03:21] LABS: Basophils % 0.5 %; Eosinophils # 0.2 K/mcL (0.0-0.6); Eosinophils % 2.5 %; Hemoglobin 9.1 g/dL (11.5-15.4); Immature Granulocytes % 0.5 % (0-4); Lymphocytes # 1.5 K/mcL (0.6-4.6); Lymphocytes % 23.3 %; Mean Corpuscular HGB Conc 29.4 g/dL (31.6-35.5); Mean Corpuscular Hemoglobin 25.2 pg (28.0-33.3); Mean Corpuscular Volume 85.9 fL (83.0-100.0); Mean Platelet Volume 10.4 fL (9.4-12.4); Monocytes # 0.4 K/mcL (0.0-1.3); Monocytes % 6.1 %; Neutrophils # 4.3 K/mcL (1.6-8.9); Platelet Count 328 K/mcL (140-400); Red Blood Count 3.61 M/mcL (3.82-4.97); Red Cell Distribution Width 16.4 % (11.5-14.5); Segmented Neutrophils % 67.1 %; White Blood Count 6.4 K/mcL (4.3-11.1)
[2021-08-13 03:40] LABS: Albumin 3.4 g/dL (3.5-5.7); Bilirubin,Total 0.3 mg/dL (0.3-1.0); Calcium 8.8 mg/dL (8.6-10.3); Globulin 3.3 g/dL (2.4-3.5); Potassium 4.1 mEq/L (3.5-5.1); Total Protein 6.7 g/dL (6.4-8.9)
[2021-08-13] MEDS: Albumin 25% 25gram/100mL 25 GM/100 ML IV.SOLN IVPB SCH ×3 (04:59→19:58)
[2021-08-13] MEDS: Aspirin Enteric Coated 81 MG Tablet PO SCH (09:26)
[2021-08-13] MEDS: Gabapentin 300 MG CAPSULE PO SCH ×2 (09:26→19:58)
[2021-08-13] MEDS: Metoprolol XL (24 HR) Succ 25 MG TAB.ER.24H PO SCH (09:26)
[2021-08-13] MEDS: FLUoxetine 20 MG CAPSULE PO SCH (09:27)
[2021-08-13] MEDS: Isosorbide MONOnitrate (24 HR) 30 MG TAB.ER.24H PO SCH (09:27)
[2021-08-13] MEDS: Insulin DETEMIR 100 UNIT/ML X5UNITS SUBQ SCH ×2 (09:35→19:57)
[2021-08-13] MEDS: Insulin LISPRO 300 UNITS/3 ML VIAL SUBQ SCH ×4 (09:36→19:57)
[2021-08-13] MEDS: traZODone 50 MG TABLET PO PRN (20:05)
[2021-08-14] MEDS: Albumin 25% 25gram/100mL 25 GM/100 ML IV.SOLN IVPB SCH (03:16)
[2021-08-14 06:56] LABS: Basophils % 0.7 %; Eosinophils % 1.8 %; Hematocrit 30.2 % (35.3-44.9); Hemoglobin 8.9 g/dL (11.5-15.4); Immature Granulocytes % 0.4 % (0-4); Lymphocytes # 1.5 K/mcL (0.6-4.6); Lymphocytes % 26.4 %; Mean Corpuscular HGB Conc 29.5 g/dL (31.6-35.5); Mean Corpuscular Hemoglobin 25.3 pg (28.0-33.3); Mean Corpuscular Volume 85.8 fL (83.0-100.0); Neutrophils # 3.5 K/mcL (1.6-8.9); Platelet Count 271 K/mcL (140-400); Red Blood Count 3.52 M/mcL (3.82-4.97); Red Cell Distribution Width 16.3 % (11.5-14.5); Segmented Neutrophils % 61.7 %; White Blood Count 5.6 K/mcL (4.3-11.1)
[2021-08-14 06:57] LABS: Eosinophils # 0.1 K/mcL (0.0-0.6); Monocytes # 0.5 K/mcL (0.0-1.3)
[2021-08-14 07:14] LABS: Calcium 8.7 mg/dL (8.6-10.3); Potassium 4.5 mEq/L (3.5-5.1)
[2021-08-14] MEDS: Aspirin Enteric Coated 81 MG Tablet PO SCH (09:29)
[2021-08-14] MEDS: FLUoxetine 20 MG CAPSULE PO SCH (09:31)
[2021-08-14] MEDS: Gabapentin 300 MG CAPSULE PO SCH ×2 (09:32→20:39)
[2021-08-14] MEDS: Isosorbide MONOnitrate (24 HR) 30 MG TAB.ER.24H PO SCH (09:32)
[2021-08-14] MEDS: Metoprolol XL (24 HR) Succ 25 MG TAB.ER.24H PO SCH (09:32)
[2021-08-14] MEDS: Insulin DETEMIR 100 UNIT/ML X5UNITS SUBQ SCH ×2 (09:38→20:40)
[2021-08-14] MEDS: Insulin LISPRO 300 UNITS/3 ML VIAL SUBQ SCH ×4 (09:39→20:40)
[2021-08-14] MEDS: Bumetanide 1 MG TABLET PO SCH (12:31)
[2021-08-14] MEDS: Ergocalciferol (VIT D2) 50,000 UNIT (1.25MG) CAP PO SCH (12:31)
[2021-08-14] MEDS ORDERED: Perflutren Lipid Microsphere 1.3 ML in 0.9 % Sodium Chloride 8.7 ML IVP PRN (12:39)
[2021-08-14] MEDS: Acetaminophen 325 MG TABLET PO PRN (13:30)
[2021-08-14] MEDS: Bumetanide 1 MG/4 ML VIAL IVP SCH (15:00)
[2021-08-14] MEDS: traZODone 50 MG TABLET PO PRN (20:39)
[2021-08-15 02:35] LABS: Hematocrit 29.7 % (35.3-44.9); Hemoglobin 8.9 g/dL (11.5-15.4); Mean Corpuscular Hemoglobin 25.4 pg (28.0-33.3); Mean Corpuscular Volume 84.6 fL (83.0-100.0); Platelet Count 257 K/mcL (140-400); Red Blood Count 3.51 M/mcL (3.82-4.97); Red Cell Distribution Width 16.3 % (11.5-14.5)
[2021-08-15 02:48] LABS: Estimated Average Glucose 280 mg/dl; Hemoglobin A1C 11.4 %
[2021-08-15 03:14] LABS: Calcium 8.8 mg/dL (8.6-10.3); Troponin I 0.07 ng/mL (< 0.04)
[2021-08-15] MEDS: Insulin LISPRO 300 UNITS/3 ML VIAL SUBQ SCH ×3 (09:10→17:19)
[2021-08-15] MEDS: Isosorbide MONOnitrate (24 HR) 30 MG TAB.ER.24H PO SCH ×2 (09:11→17:17)
[2021-08-15] MEDS: FLUoxetine 20 MG CAPSULE PO SCH (09:11)
[2021-08-15] MEDS: Metoprolol XL (24 HR) Succ 25 MG TAB.ER.24H PO SCH (09:12)
[2021-08-15] MEDS: Aspirin Enteric Coated 81 MG Tablet PO SCH (09:12)
[2021-08-15] MEDS: Gabapentin 300 MG CAPSULE PO SCH ×2 (09:12→20:40)
[2021-08-15] MEDS: Insulin DETEMIR 100 UNIT/ML X5UNITS SUBQ SCH ×2 (09:19→21:01)
[2021-08-15] MEDS: Bumetanide 1 MG/4 ML VIAL IVP SCH (10:56)
[2021-08-15] MEDS: Doxycycline 100 MG CAPSULE PO SCH ×2 (12:24→20:40)
[2021-08-15] MEDS: Nitroglycerin 0.4 MG TAB.SUBL SL PRN ×3 (14:47→20:39)
[2021-08-15] MEDS ORDERED: Isosorbide MONOnitrate (24 HR) 30 MG TAB.ER.24H PO ONE (15:06)
[2021-08-15] MEDS: *HR* Heparin 5,000 UNIT/ML VIAL SQ SCH (17:17)
[2021-08-15] MEDS ORDERED: *HR* LORazepam 2 MG/ML VIAL IVP ONE (20:26)
[2021-08-15] MEDS: traZODone 50 MG TABLET PO PRN (20:40)
[2021-08-15] MEDS: Bumetanide 1 MG TABLET PO SCH (22:48)
[2021-08-16 06:11] LABS: Basophils % 0.2 %; Eosinophils # 0.1 K/mcL (0.0-0.6); Eosinophils % 0.4 %; Hematocrit 28.7 % (35.3-44.9); Hemoglobin 8.6 g/dL (11.5-15.4); Immature Granulocytes % 0.6 % (0-4); Lymphocytes # 1.5 K/mcL (0.6-4.6); Lymphocytes % 11.7 %; Mean Corpuscular Volume 83.4 fL (83.0-100.0); Monocytes # 1.1 K/mcL (0.0-1.3); Monocytes % 8.8 %; Neutrophils # 9.9 K/mcL (1.6-8.9); Platelet Count 244 K/mcL (140-400); Red Blood Count 3.44 M/mcL (3.82-4.97); Red Cell Distribution Width 16.3 % (11.5-14.5); Segmented Neutrophils % 78.3 %; White Blood Count 12.6 K/mcL (4.3-11.1)
[2021-08-16] MEDS: *HR* Heparin 5,000 UNIT/ML VIAL SQ SCH ×3 (06:20→16:30)
[2021-08-16 06:36] LABS: Calcium 8.5 mg/dL (8.6-10.3); Phosphorous 5.2 mg/dL (2.7-4.5); Potassium 4.1 mEq/L (3.5-5.1)
[2021-08-16] MEDS: Insulin LISPRO 300 UNITS/3 ML VIAL SUBQ SCH ×3 (08:17→16:30)
[2021-08-16] MEDS: Insulin DETEMIR 100 UNIT/ML X5UNITS SUBQ SCH ×2 (08:18→20:31)
[2021-08-16] MEDS: Doxycycline 100 MG CAPSULE PO SCH ×2 (09:08→20:31)
[2021-08-16] MEDS: Metoprolol XL (24 HR) Succ 25 MG TAB.ER.24H PO SCH (09:08)
[2021-08-16] MEDS: Bumetanide 1 MG/4 ML VIAL IVP SCH (09:08)
[2021-08-16] MEDS: FLUoxetine 20 MG CAPSULE PO SCH (09:08)
[2021-08-16] MEDS: Gabapentin 300 MG CAPSULE PO SCH ×2 (09:08→20:31)
[2021-08-16] MEDS: Aspirin Enteric Coated 81 MG Tablet PO SCH (09:08)
[2021-08-16 10:59] LABS: Hepatitis B Surface Antibody < 3.10 mIU/mL
[2021-08-16 11:11] LABS: Hepatitis B Surface Antigen Nonreactive (Nonreactive)
[2021-08-16] MEDS: Albumin 25% 25gram/100mL 25 GM/100 ML IV.SOLN IVPB SCH (16:31)
[2021-08-16] MEDS: traZODone 50 MG TABLET PO PRN (20:30)
[2021-08-16] MEDS: Acetaminophen 325 MG TABLET PO PRN (23:10)
[2021-08-17] MEDS: Albumin 25% 25gram/100mL 25 GM/100 ML IV.SOLN IVPB SCH ×4 (01:26→23:31)
[2021-08-17] MEDS: *HR* Heparin 5,000 UNIT/ML VIAL SQ SCH ×2 (06:09→17:25)
[2021-08-17] MEDS: Bumetanide 1 MG/4 ML VIAL IVP SCH (08:12)
[2021-08-17] MEDS: Isosorbide MONOnitrate (24 HR) 30 MG TAB.ER.24H PO SCH (08:13)
[2021-08-17] MEDS: Doxycycline 100 MG CAPSULE PO SCH ×2 (08:13→20:17)
[2021-08-17] MEDS: Aspirin Enteric Coated 81 MG Tablet PO SCH (08:13)
[2021-08-17] MEDS: Insulin LISPRO 300 UNITS/3 ML VIAL SUBQ SCH ×3 (08:13→16:08)
[2021-08-17] MEDS: Metoprolol XL (24 HR) Succ 25 MG TAB.ER.24H PO SCH (08:13)
[2021-08-17] MEDS: FLUoxetine 20 MG CAPSULE PO SCH (08:13)
[2021-08-17] MEDS: Gabapentin 300 MG CAPSULE PO SCH ×2 (08:13→20:18)
[2021-08-17] MEDS: Insulin DETEMIR 100 UNIT/ML X5UNITS SUBQ SCH ×2 (08:14→20:18)
[2021-08-17 09:56] LABS: Bacteria,Urine Few per hpf (None-Few); Bilirubin,Urine Negative (Negative); Blood,Urine Small (Negative); Clarity,Urine Turbid (Clear); Color,Urine Light-Yellow (Yellow); Glucose,Urine (UA) 200 mg/dL (Normal); Ketones,Urine Negative (Negative); Leukocyte Esterase,Urine Large (Negative); Nitrite,Urine Negative (Negative); PH,Urine 6.5 pH Units (5.0-8.0); Protein,Urine >=300 mg/dL (Neg-Trace); RBC,Urine 0-3 per hpf (0-3); Squamous Epithelial Cell,Urine Few per hpf (None-Few); Urobilinogen,Urine Normal (Normal); WBC,Urine 50-100 per hpf (0-3)
[2021-08-17 09:59] LABS: Calcium 8.5 mg/dL (8.6-10.3); Potassium 3.9 mEq/L (3.5-5.1)
[2021-08-17 10:00] LABS: Magnesium 2.1 mg/dL (1.6-2.6); Phosphorous 5.7 mg/dL (2.7-4.5)
[2021-08-17] MEDS: Acetaminophen 325 MG TABLET PO PRN ×2 (13:33→20:17)
[2021-08-17] MEDS: traZODone 50 MG TABLET PO PRN (20:18)
[2021-08-18 04:18] LABS: Basophils % 0.3 %; Eosinophils # 0.1 K/mcL (0.0-0.6); Eosinophils % 1.9 %; Hematocrit 27.2 % (35.3-44.9); Hemoglobin 8.1 g/dL (11.5-15.4); Immature Granulocytes % 0.6 % (0-4); Lymphocytes # 1.3 K/mcL (0.6-4.6); Lymphocytes % 18.5 %; Mean Corpuscular HGB Conc 29.8 g/dL (31.6-35.5); Mean Corpuscular Hemoglobin 25.7 pg (28.0-33.3); Mean Corpuscular Volume 86.3 fL (83.0-100.0); Mean Platelet Volume 10.7 fL (9.4-12.4); Monocytes # 0.6 K/mcL (0.0-1.3); Monocytes % 8.6 %; Neutrophils # 4.8 K/mcL (1.6-8.9); Nucleated Red Blood Cells 0.7 /100 WBC (0); Platelet Count 161 K/mcL (140-400); Red Blood Count 3.15 M/mcL (3.82-4.97); Segmented Neutrophils % 70.1 %; White Blood Count 6.8 K/mcL (4.3-11.1)
[2021-08-18 04:36] LABS: Calcium 8.7 mg/dL (8.6-10.3); Magnesium 2.1 mg/dL (1.6-2.6); Phosphorous 5.1 mg/dL (2.7-4.5); Potassium 3.7 mEq/L (3.5-5.1)
[2021-08-18] MEDS: *HR* Heparin 5,000 UNIT/ML VIAL SQ SCH ×2 (05:50→17:08)
[2021-08-18] MEDS: Insulin LISPRO 300 UNITS/3 ML VIAL SUBQ SCH ×3 (07:37→16:28)
[2021-08-18] MEDS: Doxycycline 100 MG CAPSULE PO SCH ×2 (07:44→21:48)
[2021-08-18] MEDS: Gabapentin 300 MG CAPSULE PO SCH ×2 (07:44→21:48)
[2021-08-18] MEDS: FLUoxetine 20 MG CAPSULE PO SCH (07:44)
[2021-08-18] MEDS: Acetaminophen 325 MG TABLET PO PRN ×2 (07:44→16:12)
[2021-08-18] MEDS: Albumin 25% 25gram/100mL 25 GM/100 ML IV.SOLN IVPB SCH ×3 (07:44→23:30)
[2021-08-18] MEDS: Aspirin Enteric Coated 81 MG Tablet PO SCH (07:44)
[2021-08-18] MEDS: Metoprolol XL (24 HR) Succ 25 MG TAB.ER.24H PO SCH (07:44)
[2021-08-18] MEDS: Isosorbide MONOnitrate (24 HR) 30 MG TAB.ER.24H PO SCH (07:44)
[2021-08-18] MEDS: Insulin DETEMIR 100 UNIT/ML X5UNITS SUBQ SCH ×2 (07:45→21:47)
[2021-08-18] MEDS ORDERED: Chlorothiazide Sodium 500 MG VIAL IVP ONE (08:46)
[2021-08-18] MEDS: Furosemide 80 MG in 0.9 % Sodium Chloride 50 ML IV SCH ×2 (09:09→21:47)
[2021-08-18] MEDS: traZODone 50 MG TABLET PO PRN (21:48)
[2021-08-19] MEDS: *HR* Heparin 5,000 UNIT/ML VIAL SQ SCH ×2 (04:27→17:04)
[2021-08-19 05:45] LABS: Basophils % 0.3 %; Eosinophils # 0.1 K/mcL (0.0-0.6); Eosinophils % 1.9 %; Hematocrit 27.9 % (35.3-44.9); Hemoglobin 8.3 g/dL (11.5-15.4); Immature Granulocytes % 0.5 % (0-4); Lymphocytes # 1.1 K/mcL (0.6-4.6); Lymphocytes % 16.8 %; Mean Corpuscular HGB Conc 29.7 g/dL (31.6-35.5); Mean Corpuscular Hemoglobin 25.2 pg (28.0-33.3); Mean Corpuscular Volume 84.8 fL (83.0-100.0); Mean Platelet Volume 11.8 fL (9.4-12.4); Monocytes # 0.8 K/mcL (0.0-1.3); Neutrophils # 4.3 K/mcL (1.6-8.9); Nucleated Red Blood Cells 0.8 /100 WBC (0); Platelet Count 174 K/mcL (140-400); Red Blood Count 3.29 M/mcL (3.82-4.97); Red Cell Distribution Width 17.4 % (11.5-14.5); Segmented Neutrophils % 68.5 %; White Blood Count 6.3 K/mcL (4.3-11.1)
[2021-08-19 05:57] LABS: INR 1.3; Prothrombin Time 14.5 Seconds (9.4-12.1)
[2021-08-19 06:07] LABS: Albumin 4.4 g/dL (3.5-5.7); Calcium 9.4 mg/dL (8.6-10.3); Phosphorous 5.2 mg/dL (2.7-4.5); Potassium 3.7 mEq/L (3.5-5.1)
[2021-08-19] MEDS: Insulin DETEMIR 100 UNIT/ML X5UNITS SUBQ SCH ×2 (07:49→22:17)
[2021-08-19] MEDS: Metoprolol XL (24 HR) Succ 25 MG TAB.ER.24H PO SCH (07:49)
[2021-08-19] MEDS: Isosorbide MONOnitrate (24 HR) 30 MG TAB.ER.24H PO SCH (07:49)
[2021-08-19] MEDS: FLUoxetine 20 MG CAPSULE PO SCH (07:49)
[2021-08-19] MEDS: Aspirin Enteric Coated 81 MG Tablet PO SCH (07:49)
[2021-08-19] MEDS: Insulin LISPRO 300 UNITS/3 ML VIAL SUBQ SCH ×3 (07:49→15:45)
[2021-08-19] MEDS: Doxycycline 100 MG CAPSULE PO SCH (07:49)
[2021-08-19] MEDS: Albumin 25% 25gram/100mL 25 GM/100 ML IV.SOLN IVPB SCH ×2 (07:49→15:53)
[2021-08-19] MEDS: Gabapentin 300 MG CAPSULE PO SCH ×2 (07:49→20:22)
[2021-08-19] MEDS ORDERED: *HR* Heparin 10,000 UNIT/10 ML VIAL IV PRN (08:59)
[2021-08-19] MEDS ORDERED: 0.9 % Sodium Chloride 250 ML IVC PRN (08:59)
[2021-08-19] MEDS ORDERED: 0.9 % Sodium Chloride 2,000 ML PRIME SCH (09:00)
[2021-08-19] MEDS ORDERED: *HR* LORazepam 2 MG/ML VIAL IVP PRN (09:21)
[2021-08-19] MEDS: Furosemide 80 MG in 0.9 % Sodium Chloride 50 ML IV SCH ×2 (09:23→20:21)
[2021-08-19] MEDS: Amoxicillin/Clavulanate 500 MG TABLET PO SCH (15:53)
[2021-08-19] MEDS: Acetaminophen 325 MG TABLET PO PRN (17:50)
[2021-08-19] MEDS: traZODone 50 MG TABLET PO PRN (20:30)
[2021-08-20] MEDS: *HR* Heparin 5,000 UNIT/ML VIAL SQ SCH ×2 (05:11→15:40)
[2021-08-20] MEDS: Acetaminophen 325 MG TABLET PO PRN ×2 (05:13→15:20)
[2021-08-20 07:17] LABS: Basophils % 0.4 %; Eosinophils # 0.1 K/mcL (0.0-0.6); Eosinophils % 1.9 %; Hematocrit 30.5 % (35.3-44.9); Immature Granulocytes % 0.4 % (0-4); Lymphocytes # 1.2 K/mcL (0.6-4.6); Lymphocytes % 18.2 %; Mean Corpuscular HGB Conc 29.5 g/dL (31.6-35.5); Mean Corpuscular Hemoglobin 25.1 pg (28.0-33.3); Mean Platelet Volume 12.2 fL (9.4-12.4); Monocytes # 0.8 K/mcL (0.0-1.3); Monocytes % 12.1 %; Neutrophils # 4.5 K/mcL (1.6-8.9); Nucleated Red Blood Cells 0.4 /100 WBC (0); Platelet Count 188 K/mcL (140-400); Red Blood Count 3.59 M/mcL (3.82-4.97); Red Cell Distribution Width 18.1 % (11.5-14.5); White Blood Count 6.8 K/mcL (4.3-11.1)
[2021-08-20 07:47] LABS: Phosphorous 4.3 mg/dL (2.7-4.5)
[2021-08-20] MEDS: Insulin LISPRO 300 UNITS/3 ML VIAL SUBQ SCH ×3 (07:58→15:40)
[2021-08-20] MEDS ORDERED: *HR* Heparin 10,000 UNIT/10 ML VIAL IV PRN (08:14)
[2021-08-20] MEDS ORDERED: 0.9 % Sodium Chloride 250 ML IVC PRN (08:14)
[2021-08-20] MEDS: Isosorbide MONOnitrate (24 HR) 30 MG TAB.ER.24H PO SCH (08:57)
[2021-08-20] MEDS: Aspirin Enteric Coated 81 MG Tablet PO SCH (08:57)
[2021-08-20] MEDS: Furosemide 80 MG in 0.9 % Sodium Chloride 50 ML IV SCH (08:57)
[2021-08-20] MEDS: FLUoxetine 20 MG CAPSULE PO SCH (08:57)
[2021-08-20] MEDS: Metoprolol XL (24 HR) Succ 25 MG TAB.ER.24H PO SCH (08:57)
[2021-08-20] MEDS: Insulin DETEMIR 100 UNIT/ML X5UNITS SUBQ SCH ×2 (08:57→20:35)
[2021-08-20] MEDS: Amoxicillin/Clavulanate 500 MG TABLET PO SCH ×2 (08:57→15:20)
[2021-08-20] MEDS: Furosemide 40 MG TABLET PO SCH (15:40)
[2021-08-20] MEDS: Gabapentin 300 MG CAPSULE PO SCH (20:32)
[2021-08-20] MEDS: traZODone 50 MG TABLET PO PRN (20:43)
[2021-08-21] MEDS: *HR* Heparin 5,000 UNIT/ML VIAL SQ SCH ×2 (05:23→17:16)
[2021-08-21 05:38] LABS: Basophils % 0.4 %; Eosinophils # 0.2 K/mcL (0.0-0.6); Eosinophils % 2.4 %; Hematocrit 28.9 % (35.3-44.9); Hemoglobin 8.7 g/dL (11.5-15.4); Immature Granulocytes % 0.6 % (0-4); Lymphocytes # 1.3 K/mcL (0.6-4.6); Lymphocytes % 18.5 %; Mean Corpuscular HGB Conc 30.1 g/dL (31.6-35.5); Mean Corpuscular Hemoglobin 25.8 pg (28.0-33.3); Mean Corpuscular Volume 85.8 fL (83.0-100.0); Mean Platelet Volume 11.4 fL (9.4-12.4); Monocytes # 0.9 K/mcL (0.0-1.3); Monocytes % 11.8 %; Neutrophils # 4.8 K/mcL (1.6-8.9); Platelet Count 190 K/mcL (140-400); Red Blood Count 3.37 M/mcL (3.82-4.97); Red Cell Distribution Width 18.6 % (11.5-14.5); Segmented Neutrophils % 66.3 %; White Blood Count 7.2 K/mcL (4.3-11.1)
[2021-08-21 05:57] LABS: Calcium 9.8 mg/dL (8.6-10.3); Magnesium 1.8 mg/dL (1.6-2.6); Phosphorous 4.2 mg/dL (2.7-4.5); Potassium 3.8 mEq/L (3.5-5.1)
[2021-08-21] MEDS: FLUoxetine 20 MG CAPSULE PO SCH (07:53)
[2021-08-21] MEDS: Amoxicillin/Clavulanate 500 MG TABLET PO SCH ×2 (07:53→17:17)
[2021-08-21] MEDS: Metoprolol XL (24 HR) Succ 25 MG TAB.ER.24H PO SCH (07:53)
[2021-08-21] MEDS: Furosemide 40 MG TABLET PO SCH ×2 (07:53→17:17)
[2021-08-21] MEDS: Aspirin Enteric Coated 81 MG Tablet PO SCH (07:53)
[2021-08-21] MEDS: Insulin LISPRO 300 UNITS/3 ML VIAL SUBQ SCH ×3 (07:55→17:12)
[2021-08-21] MEDS: Insulin DETEMIR 100 UNIT/ML X5UNITS SUBQ SCH ×2 (08:02→19:50)
[2021-08-21] MEDS: Ergocalciferol (VIT D2) 50,000 UNIT (1.25MG) CAP PO SCH (11:48)
[2021-08-21] MEDS: Isosorbide MONOnitrate (24 HR) 30 MG TAB.ER.24H PO SCH (11:48)
[2021-08-21] MEDS: Acetaminophen 325 MG TABLET PO PRN ×2 (11:48→19:50)
[2021-08-21] MEDS: traZODone 50 MG TABLET PO PRN (19:49)
[2021-08-21] MEDS: Gabapentin 300 MG CAPSULE PO SCH (19:50)
[2021-08-22] MEDS: *HR* Heparin 5,000 UNIT/ML VIAL SQ SCH (04:35)
[2021-08-22 05:05] LABS: Basophils % 0.5 %; Eosinophils # 0.2 K/mcL (0.0-0.6); Eosinophils % 3.4 %; Hematocrit 28.6 % (35.3-44.9); Hemoglobin 8.5 g/dL (11.5-15.4); Lymphocytes # 1.5 K/mcL (0.6-4.6); Lymphocytes % 24.6 %; Mean Corpuscular HGB Conc 29.7 g/dL (31.6-35.5); Mean Corpuscular Volume 87.5 fL (83.0-100.0); Mean Platelet Volume 11.6 fL (9.4-12.4); Monocytes # 0.7 K/mcL (0.0-1.3); Monocytes % 11.4 %; Neutrophils # 3.7 K/mcL (1.6-8.9); Platelet Count 202 K/mcL (140-400); Red Blood Count 3.27 M/mcL (3.82-4.97); Segmented Neutrophils % 59.1 %; White Blood Count 6.2 K/mcL (4.3-11.1)
[2021-08-22 05:20] LABS: Calcium 9.3 mg/dL (8.6-10.3); Magnesium 1.9 mg/dL (1.6-2.6); Phosphorous 5.2 mg/dL (2.7-4.5); Potassium 3.4 mEq/L (3.5-5.1)
[2021-08-22 06:56] VITALS: TEMP 97.7
[2021-08-22] MEDS: Insulin DETEMIR 100 UNIT/ML X5UNITS SUBQ SCH (08:51)
[2021-08-22] MEDS: Aspirin Enteric Coated 81 MG Tablet PO SCH (08:51)
[2021-08-22] MEDS: Isosorbide MONOnitrate (24 HR) 30 MG TAB.ER.24H PO SCH (08:51)
[2021-08-22] MEDS: Metoprolol XL (24 HR) Succ 25 MG TAB.ER.24H PO SCH (08:51)
[2021-08-22] MEDS: Amoxicillin/Clavulanate 500 MG TABLET PO SCH (08:51)
[2021-08-22] MEDS: Insulin LISPRO 300 UNITS/3 ML VIAL SUBQ SCH ×2 (08:51→11:35)
[2021-08-22] MEDS: FLUoxetine 20 MG CAPSULE PO SCH (08:51)
[2021-08-22] MEDS: Furosemide 40 MG TABLET PO SCH (08:52)
[2021-08-22 11:26] VITALS: BP 157/79; PULSE 73; O2SAT 98
[2021-08-22] MEDS ORDERED: Furosemide 40 MG TABLET PO SCH (17:00)
== END 2021-08-22 13:56 | disposition home or self-care (01) | DRG 280 ==
LOC: 2ANU → SUATTDRO 10:49
PROVIDERS: ADMIT Student in an Organized Health Care Education/Training Program; ATTEND Family Medicine